=== PATIENT | female | born 1950 | race American Indian/Alaskan Native ===

== ENCOUNTER 2020-01-22 06:53 | Day surgery (SDC) | payer MEDICARE ==
--- NOTE | 2020-01-20 12:52 | Anesthesia Consultation ---
Anesthesia Consult and Med Hx Date of service: 01/20/20 - Airway Anesthetic Teeth Evaluation: Dentures (upper), Partials (lower) ROM Head & Neck: Adequate Mental/Hyoid Distance: Adequate Mallampati Class: Class III Intubation Access Assessment: Possibly Difficult (small mouth opening) - Pulmonary Exam CTA: Yes - Cardiac Exam Cardiac Exam: RRR - Pre-Operative Health Status ASA Pre-Surgery Classification: ASA3 Proposed Anesthetic Plan: General - Pulmonary Hx Smoking: No Hx Respiratory Symptoms: No - Cardiovascular System Hx Hypertension: Yes Hx Heart Attack/AMI: No Hx Percutaneous Transluminal Coronary Angioplasty (PTCA): No Hx Cardia Arrhythmia: Yes (hx palpitations; Holter monitor showed occas PVCs, PACs) Hx Pacemaker: No Hx Internal Defibrillator: No - Central Nervous System Hx Neuromuscular Disorder: No (peripheral neuropathy) CVA: No Hx Back Pain: Yes - Endocrine Hx Renal Disease: Yes (CKD 3) Hx Liver Disease: No Hx Non-Insulin Dependent Diabetes: Yes Hx Thyroid Disease: Yes (hx goiter s/p thyroidectomy) - Hematic Hx Anemia: Yes - Other Systems Hx Obesity: Yes (BMI 39) - Additional Comments Anesthesia Medical History Comments: No hx anesthetic complications. Takes prednisone 5mg qDay for >1yr 2/2 gout. Advised to take this morning of surgery. PCP clearance on chart. Prior EKG requested.
[~2020-01-22 06:53] MED LIST: ACETAMINOPHEN 500 MG TAB PO SCH; BUPIVACAINE/PF (0.25%) 2.5 MG/ML 30 ML VIAL INFILTRATI ONE; GABAPENTIN 300 MG CAP PO NR; LACTATED RINGERS 1,000 ML IV SCH; LIDOCAINE (1%) 10 MG/1 ML VIAL 20 ML MDV INFILTRATI ONE; MAGNESIUM OXIDE 400 MG TAB PO SCH; WATER FOR IRRIG STERILE 1,500 ML BOTTLE IR ONE; ceFAZolin/Water 2 GM/20 ML 2 GM/20 ML SYRINGE IV NR
[2020-01-22] MEDS ORDERED: LIDOCAINE (1%) 10 MG/1 ML VIAL 20 ML MDV ONE ×2 (07:42→10:04)
[2020-01-22] MEDS ORDERED: HYDROmorphone 1 MG/1 ML INJ IV PRN (08:45)
--- NOTE | 2020-01-22 08:46 | Anesthesia Day of Surgery ---
Anesthesia Day of Surgery - Day of Surgery Patient Examined: Yes Patient H&P Reviewed: Yes Patient is NPO: Yes
[2020-01-22] MEDS ORDERED: propofoL 200 MG/20 ML VIAL IV ONE (09:52)
[2020-01-22] MEDS ORDERED: LIDOCAINE MPF (2%) 20 MG/1 ML VIAL 5 ML ONE (09:52)
[2020-01-22] MEDS ORDERED: HYDROmorphone 1 MG/1 ML INJ ONE (09:52)
[2020-01-22] MEDS ORDERED: BUPIVACAINE/PF (0.25%) 2.5 MG/ML 30 ML VIAL INFILTRATI ONE ×2 (10:05→11:38)
[2020-01-22] MEDS ORDERED: PHENYLEPHRINE/NS 1,000 MCG/10 ML SYRINGE (OR USE) IV ONE (10:37)
[2020-01-22] MEDS ORDERED: ONDANSETRON 4 MG/2 ML INJ ONE ×2 (10:38→12:36)
[2020-01-22] MEDS ORDERED: ePHEDrine SULFATE 50 MG/1 ML INJ ONE (11:17)
[2020-01-22] MEDS ORDERED: WATER FOR IRRIG STERILE 1,500 ML BOTTLE IR ONE (11:35)
[2020-01-22] MEDS ORDERED: LIDOCAINE (1%) 10 MG/1 ML VIAL 20 ML MDV INFILTRATI ONE (11:38)
--- NOTE | 2020-01-22 11:46 | Operative Report ---
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 Recommendations are to proceed with right breast excisional biopsy to rule out malignancy. She wished to proceed with the above procedure. Procedure in detail: The patient was taken to radiology for wire placement for localization of known area of concern. Patient was then taken to the operating room. Gen. anesthesia was administered. Right breast and axilla were prepped and draped in the normal sterile operative fashion. The wire was identified. Timeout was performed. Attention was then taken towards the right breast. Lateral breast incision was made around the 9:00 position with a 15 blade knife and dissection taken down to subcutaneous tissues. First began raising of the anterior flap with removal of the wire from the skin with dissection taken down posteriorly past the wire, followed by raising of the inferior flap, medial flap, lateral and superior flap with all flaps taken down posteriorly past the wire. The breast area of concern was appropriately removed posteriorly with the aid of the Bovie cautery. The wire was not encountered. Specimen was marked and then sent to pathology and radiology; radiograph specimen with wire and clip present. Breast cavity was irrigated and hemostasis was obtained. The posterior deep breast tissues were approximated and closed using interrupted 3-0 Vicryl. The subcutaneous tissues were approximated and closed using interrupted 3-0 Vicryl followed by closing of the skin with a running 4-0 Monocryl and skin affix. The patient tolerated surgery very well and she was awaken from anesthesia without any complication and transported to PACU in good condition.
--- NOTE | 2020-01-22 11:49 | Short Stay Summary ---
Short Stay Documentation Date of service: 01/22/20 - History H&P: obtained from office - Allergies and Medications Current Medications: Allergies No Known Allergies Allergy (Verified 01/13/20 12:45) Home Medications Medication Instructions Recorded Confirmed Last Taken Type Metformin HCl 500 mg PO BID 03/26/13 01/13/20 01/21/20 History Cholecalciferol (Vitamin D3) 3,000 unit PO DAILY 01/13/20 01/13/20 01/21/20 History [Vitamin D3 3,000 unit] Doxazosin [Cardura] 4 mg PO QDAY 01/13/20 01/13/20 01/21/20 History Ferrous Sulfate [Feosol] 325 mg PO QDAY 01/13/20 01/13/20 01/21/20 History Furosemide [Lasix TAB] 40 mg PO QDAY 01/13/20 01/13/20 01/21/20 History Multivit-Min36/Iron/Folic Acid 1 each PO DAILY 01/13/20 01/13/20 01/21/20 History [Geritol Complete Tablet] Prednisone [predniSONE (Janell) ER 5 mg PO QDAY 01/13/20 01/13/20 01/22/20 05:30 History TAB] Simvastatin 10 mg PO QHS 01/13/20 01/13/20 01/21/20 History Valsartan/Hydrochlorothiazide 1 each PO DAILY 01/13/20 01/13/20 01/21/20 History [Valsartan-Hctz 160-25 mg Tab] Vitamin E Mixed [Vitamin E] 1,000 unit PO DAILY 01/13/20 01/13/20 01/21/20 History allopurinoL [Zyloprim] 300 mg PO QDAY 01/13/20 01/13/20 01/21/20 History amLODIPine [Norvasc] 10 mg PO DAILY 01/13/20 01/13/20 01/22/20 05:30 History carvediloL [Coreg] 25 mg PO BID 01/22/20 01/22/20 01/22/20 05:30 History oxyCODONE /ACETAMINOPHEN [Percocet 1 tab PO Q6HR PRN #15 tablet 01/22/20 Unknown Rx 5/325] Active Medications Acetaminophen (Tylenol) 1,000 mg PO PREOP DEVIKA Stop: 01/22/20 23:59 Last Admin: 01/22/20 08:36 Dose: 1,000 mg Documented by: Gabapentin (Gabapentin) 300 mg PO PREOP NR Stop: 01/22/20 23:59 Last Admin: 01/22/20 08:36 Dose: 300 mg Documented by: Hydromorphone HCl (Dilaudid) 0.5 mg IV Q10MIN PRN PRN Reason: Pain , Severe (7-10) Stop: 01/22/20 23:00 Cefazolin Sodium (Ancef/Sterile Water 2 Gm/20 Ml) 2 gm in 20 mls @ 80 mls/hr IV PREOP NR; Protocol Stop: 01/22/20 23:59 Lactated Ringer's (Lactated Ringers) 1,000 mls @ 100 mls/hr IV DIRECT DEVIKA Stop: 01/22/20 23:59 Last Admin: 01/22/20 09:10 Dose: 100 mls/hr Documented by: Magnesium Oxide (Mag-Ox) 400 mg PO PREOP DEVIKA Stop: 01/22/20 23:59 Last Admin: 01/22/20 08:36 Dose: 400 mg Documented by: - Brief post op/procedure progress note Date of procedure: 01/22/20 Pre-op diagnosis: Right breast ADH of central breast Post-op diagnosis: same Procedure: Right needle localization excisional biopsy Anesthesia: GETA Findings: wire and clip present Surgeon: HARIS MAHONEY Estimated blood loss: minimal Pathology: list Specimen disposition: to lab Condition: stable - Disposition Condition at discharge: Good Disposition: DC-01 TO HOME OR SELFCARE Short Stay Discharge Plan Activity: other (no heavy lifting) Diet: regular Wound: keep clean and dry (wear breast binder; may shower in 48 hours; no baths, pools or lakes; do not rub or scrub incision) Follow up with: HARIS MAHONEY MD [Staff Physician] - 7 Days Prescriptions: oxyCODONE /ACETAMINOPHEN [Percocet 5/325] 1 tab PO Q6HR PRN #15 tablet PRN Reason: Pain
--- NOTE | 2020-01-22 12:09 | Mammography Report ---
Examination: Mammographic guided right breast needle localization CLINICAL INFORMATION: Patient with a right breast nodule requiring needle localization. Comparison: Diagnostic imaging from 12/23/2019. PROCEDURE: The risks, benefits and indications to the procedure were discussed with the patient. She agreed to p roceed with both verbal and written consent. A timeout procedure was performed using two patient iden tifiers. The breast was prepped with Chlorhexidine 1% in the usual sterile fashion. Approximately 10 cc of Lid ocaine 1% was used for local anesthesia. Under direct digital mammographic guidance, a localization w brenna was placed in satisfactory position with distal tip traversing the targeted lesion. Post-biopsy m ammogram confirms satisfactory positioning of the localization wire. The wire was secured to the skin with a sterile dressing. The patient tolerated procedure without difficulty. No complications were encountered. IMPRESSION: 1. Satisfactory wire localization of the right breast as above. Signer Name: John Loera MD Signed: 01/22/2020 12:05 PM Workstation Name: [id number]
--- NOTE | 2020-01-22 12:14 | Mammography Report ---
Right breast surgical specimen INDICATION: Patient for right breast needle localization earlier today TECHNIQUE: A single image of the surgical specimen was provided. IMPRESSION: The entire wire was submitted and the right breast nodule with internal clip is completel y included on the provided specimen. Signer Name: John Loera MD Signed: 01/22/2020 12:09 PM Workstation Name: [id number]
[2020-01-22 12:18] VITALS: BP 138/75
[2020-01-22] MEDS ORDERED: ONDANSETRON 4 MG/2 ML INJ IV ONE (12:37)
--- NOTE | 2020-01-22 15:33 | Post Anesthesia Evaluation ---
- Post Anesthesia Evaluation Patient Participated: Yes Airway Patent: Yes Stable Respiratory Function: Yes Nausea/Vomiting: No Temp > 96.8F: Yes Pain Manageable: Yes Adequeate Hydration: Yes Anesthesia Complications: No
== END 2020-01-22 06:54 | disposition home or self-care (01) ==
LOC: OR 06:53
PROVIDERS: ATTEND Surgery
DX: N64.89 Other specified disorders of breast (principal); Z20.828 Contact with and (suspected) exposure to other viral communicable diseases; D24.1 Benign neoplasm of right breast; H40.9 Unspecified glaucoma; G62.9 Polyneuropathy, unspecified; I42.9 Cardiomyopathy, unspecified; E78.00 Pure hypercholesterolemia, unspecified; I12.9 Hypertensive chronic kidney disease with stage 1 through stage 4 chronic kidney disease, or unspecified chronic kidney disease; N18.3 Chronic kidney disease, stage 3 (moderate); E11.22 Type 2 diabetes mellitus with diabetic chronic kidney disease; E03.9 Hypothyroidism, unspecified; E11.42 Type 2 diabetes mellitus with diabetic polyneuropathy; E11.39 Type 2 diabetes mellitus with other diabetic ophthalmic complication; D64.9 Anemia, unspecified; Z90.49 Acquired absence of other specified parts of digestive tract; Z79.899 Other long term (current) drug therapy; Z79.84 Long term (current) use of oral hypoglycemic drugs; Z98.890 Other specified postprocedural states; Z96.652 Presence of left artificial knee joint
CPT/HCPCS: 19125; 19281; 76098; 82962; 88307; J0690; J1170; J2370; J2405; J2704; J7120; U0003

== ENCOUNTER 2020-08-13 12:41 | Outpatient (CLI) | payer MEDICARE ==
--- NOTE | 2020-08-13 14:41 | Mammography Report ---
DIGITAL DIAGNOSTIC MAMMOGRAM WITH CAD , 08/13/2020 CLINICAL INFORMATION / INDICATION: History of right breast surgery TECHNIQUE: Digital bilateral mammographic imaging was performed. This examination was interpreted with the benefit of Computer-aided Detection analysis. COMPARISON: Prior mammogram 11/11/2019, 10/29/2018 and diagnostic mammogram 11/23/2019 FINDINGS: Breast Density: There are scattered areas of fibroglandular density. No dominant mass, suspicious calcifications or architectural distortion in either breast. There has been interval excisional biopsy in the right breast since the prior exam. There are 2 biops y clips present in the right breast unchanged from older exams. The biopsy clip in question that was related to ADH/fibroadenoma has been removed during recent right breast surgery. Biopsy clip in the retroareolar left breast is again noted. There are multiple clusters of calcificat ions present bilaterally unchanged. IMPRESSION: No mammographic evidence of malignancy. Follow up recommendation: Routine yearly BI-RADS Category 2: Benign. A "normal" or negative report should not discourage follow up or biopsy of a clinically significant f inding. A written summary of these findings will be mailed to the patient. The patient will be entered into a mammography reporting system which will generate a reminder letter for the patient's next appointmen t at the appropriate interval. According to the [employer], yearly mammograms are recommended starting at age 40 and continuing as long as a woman is in good health. Breast MRI is recommended for women with an roman roximately 20-25% or greater lifetime risk of breast cancer, including women with a strong family his tory of breast or ovarian cancer and women who have been treated for Hodgkin's disease. Signer Name: Sonya Daniels MD Signed: 08/13/2020 2:36 PM Workstation Name: [id number]
== END 2020-08-13 12:42 | disposition home or self-care (01) ==
LOC: SPVWC 12:41
PROVIDERS: ATTEND Surgery
DX: R92.8 Other abnormal and inconclusive findings on diagnostic imaging of breast (principal)
CPT/HCPCS: 77066

== ENCOUNTER 2020-11-12 13:15 | Outpatient (CLI) | payer MEDICARE ==
--- NOTE | 2020-11-13 09:09 | Mammography Report ---
DIGITAL SCREENING MAMMOGRAM WITH CAD, 11/12/2020 CLINICAL INFORMATION / INDICATION: Routine screening mammography. TECHNIQUE: Digital bilateral 2D mammography was obtained in the craniocaudal and mediolateral obliqu e projections. This examination was interpreted with the benefit of Computer-Aided Detection analysis . COMPARISON: Prior mammograms 08/13/2020 and 11/11/2019 FINDINGS: Breast Density: There are scattered areas of fibroglandular density. No dominant mass, suspicious calcifications, or architectural distortion in either breast. There is stable benign postsurgical change seen in the right breast, stable biopsy clips seen in both breasts, and stable benign-appearing calcifications seen in both breasts. There has been no signific ant change compared with the prior examination. IMPRESSION: No mammographic evidence of malignancy. Follow up recommendation: Routine yearly BI-RADS Category 2: Benign. A "normal" or negative report should not discourage follow up or biopsy of a clinically significant f inding. A written summary of these findings will be mailed to the patient. The patient will be entered into a mammography reporting system which will generate a reminder letter for the patient's next appointmen t at the appropriate interval. The [employer] recommends yearly mammograms starting at age 40 and continuing as l chavo as a woman is in good health. Breast MRI is recommended for women with an approximate 20-25% or greater lifetime risk of breast cancer, including women with a strong family history of breast or ova marcial cancer or who have been treated for Hodgkin's disease. Signer Name: Felisha Morales MD Signed: 11/13/2020 9:04 AM Workstation Name: [id number]
== END 2020-11-12 13:16 | disposition home or self-care (01) ==
LOC: SPVWC 13:15
PROVIDERS: ATTEND Surgery
DX: Z12.31 Encounter for screening mammogram for malignant neoplasm of breast (principal); N64.89 Other specified disorders of breast
CPT/HCPCS: 77067

== ENCOUNTER 2021-06-16 08:04 | Outpatient (CLI) | payer MEDICARE ==
--- NOTE | 2021-06-16 17:44 | Mammography Report ---
DIGITAL DIAGNOSTIC MAMMOGRAM WITH CAD WITH TOMOSYNTHESIS, 06/16/2021 CLINICAL INFORMATION / INDICATION: Patient has history of prior bilateral benign breast biopsies. Pat ient has no current complaints. CALCIFICATIONS OF BREAST R92.1, R92.0/ MAMMARY DYSPLASIAS N60.81 TECHNIQUE: Digital bilateral mammographic imaging was performed. This examination was interpreted with the benefit of Computer-aided Detection analysis. COMPARISON: Prior mammogram 11/12/2020, 08/13/2020, and 11/11/2019 FINDINGS: Breast Density: There are scattered areas of fibroglandular density. No dominant mass, suspicious calcifications or architectural distortion in the left breast. Redemonstration of postlumpectomy change in the upper outer quadrant of the right breast, middle dept h. There is a possible area of increasing nodularity along the margin of the lumpectomy site measurin g up to approximately 10 mm, best seen on CC view. It is uncertain if this is new or is just seen to better advantage on the current study with tomosynthesis. There are stable benign-appearing calcific ations with scattered distribution seen in both breasts, and stable biopsy clips in both breasts. IMPRESSION: 1. There is possible increasing density seen at the lumpectomy site in the right breast. Recommend fu rther evaluation with spot compression views and targeted ultrasound if needed. Follow up recommendation: Special View: Spot BI-RADS Category 0: INCOMPLETE. Needs additional imaging evaluation and/or prior mammograms for jessy allen. A "normal" or negative report should not discourage follow up or biopsy of a clinically significant f inding. A written summary of these findings will be mailed to the patient. The patient will be entered into a mammography reporting system which will generate a reminder letter for the patient's next appointmen t at the appropriate interval. According to the [employer], yearly mammograms are recommended starting at age 40 and continuing as long as a woman is in good health. Breast MRI is recommended for women with an roman roximately 20-25% or greater lifetime risk of breast cancer, including women with a strong family his tory of breast or ovarian cancer and women who have been treated for Hodgkin's disease. Signer Name: Felisha Morales MD Signed: 06/16/2021 5:40 PM Workstation Name: [email or web address]
== END 2021-06-16 08:05 | disposition home or self-care (01) ==
LOC: SPVWC 08:04
PROVIDERS: ATTEND Surgery
DX: R92.1 Mammographic calcification found on diagnostic imaging of breast (principal); N60.81 Other benign mammary dysplasias of right breast; Z90.12 Acquired absence of left breast and nipple
CPT/HCPCS: 77066; G0279

== ENCOUNTER 2021-08-11 18:14 | Inpatient (IN) | payer MEDICARE ==
[2021-08-11] MEDS ORDERED: SODIUM CHLORIDE 0.9% 1000 ML 1,000 ML ONE (19:18)
[2021-08-11] MEDS ORDERED: SODIUM CHLORIDE 0.9% 1000 ML 1,000 ML IV ONE (19:26)
[2021-08-11] MEDS ORDERED: SODIUM CHLORIDE 0.9% 1000 ML IV SOLN IV ONE (19:33)
[2021-08-11] MEDS ORDERED: methylPREDNISolone Sod Succinate 125 MG/2 ML INJ IV ONE (19:34)
[2021-08-11 20:26] LABS: Hematocrit 35.5 % (30.3-42.9); Hemoglobin 11.1 gm/dl (10.1-14.3); Mean Corpuscular HGB Conc 31 % (30-34); Mean Corpuscular Volume 89 fl (79-97); Platelet Count 262 K/mm3 (140-440); Red Blood Count 3.99 M/mm3 (3.65-5.03); Red Cell Distribution Width 14.8 % (13.2-15.2)
--- NOTE | 2021-08-11 20:36 | XRay Report ---
CHEST 1 VIEW INDICATION: hypotension. COMPARISON: None FINDINGS: SUPPORT DEVICES: None. HEART: Mild cardiomegaly. LUNGS/PLEURA: Mild edema and patchy right basilar airspace disease/edema. No significant effusion. ADDITIONAL FINDINGS: None. IMPRESSION: 1. Lung findings as above. Signer Name: John Loera MD Signed: 08/11/2021 8:32 PM Workstation Name: [id number]
[2021-08-11 20:54] LABS: Alanine Aminotransferase 15 units/L (7-56); Albumin 3.3 g/dL (3.9-5); Blood Urea Nitrogen 59 mg/dL (7-17); Calcium 8.1 mg/dL (8.4-10.2); Hemolysis Index 11
[2021-08-11 21:01] LABS: Free T4 (Free Thyroxine) 1.08 ng/dL (0.76-1.46)
[2021-08-11] MEDS ORDERED: CEFEPIME/NS 1 GM/100 ML 1 GM/100 ML BAG IV ONE (21:15)
[2021-08-11] MEDS ORDERED: VANCOMYCIN 2,000 MG in SODIUM CHLORIDE 0.9% 500 ML 500 ML IV ONE (21:16)
[2021-08-11 21:17] LABS: BUN/Creatinine Ratio 16
--- NOTE | 2021-08-11 21:55 | Emergency Department Report ---
- General Chief complaint: Weakness Stated complaint: HIVES/WEAKNESS Time Seen by Provider: 08/11/21 19:18 Source: patient, EMS, old records reviewed Mode of arrival: Stretcher Limitations: No Limitations - History of Present Illness Initial comments: 70-year-old female with a past medical history of hypertension, gout, CKD, diabetes, and noncancerous breast mass presents to the hospital complaining of generalized weakness since this morning. Patient reports she has been lethargic and too weak to walk with decreased appetite today. For the last 1 week she has had generalized pruritic erythematous rash diagnosed as hives by her PMD. She received 1 IM dose of steroids and was sent home with a steroid cream. Patient denies new exposures and denies starting a new medication. Patient denies infectious symptoms such as cough, fever, nausea, vomiting, diarrhea, or dysuria . She denies a known history of heart disease or CHF Severity scale (0 -10): 0 - Related Data Home Medications Medication Instructions Recorded Confirmed Last Taken Metformin HCl 500 mg PO BID 03/26/13 01/13/20 01/21/20 Cholecalciferol (Vitamin D3) 3,000 unit PO DAILY 01/13/20 01/13/20 01/21/20 [Vitamin D3 3,000 unit] Doxazosin [Cardura] 4 mg PO QDAY 01/13/20 01/13/20 01/21/20 Ferrous Sulfate [Feosol] 325 mg PO QDAY 01/13/20 01/13/20 01/21/20 Furosemide [Lasix TAB] 40 mg PO QDAY 01/13/20 01/13/20 01/21/20 Multivit-Min36/Iron/Folic Acid 1 each PO DAILY 01/13/20 01/13/20 01/21/20 [Geritol Complete Tablet] Prednisone [predniSONE (Ajnell) ER 5 mg PO QDAY 01/13/20 01/13/20 01/22/20 05:30 TAB] Simvastatin 10 mg PO QHS 01/13/20 01/13/20 01/21/20 Valsartan/Hydrochlorothiazide 1 each PO DAILY 01/13/20 01/13/20 01/21/20 [Valsartan-Hctz 160-25 mg Tab] Vitamin E Mixed [Vitamin E] 1,000 unit PO DAILY 01/13/20 01/13/20 01/21/20 allopurinoL [Zyloprim] 300 mg PO QDAY 01/13/20 01/13/20 01/21/20 amLODIPine [Norvasc] 10 mg PO DAILY 01/13/20 01/13/20 01/22/20 05:30 carvediloL [Coreg] 25 mg PO BID 01/22/20 01/22/20 01/22/20 05:30 Previous Rx's Medication Instructions Recorded Last Taken Type oxyCODONE /ACETAMINOPHEN [Percocet 1 tab PO Q6HR PRN #15 tablet 01/22/20 Unknown Rx 5/325] Allergies Allergy/AdvReac Type Severity Reaction Status Date / Time No Known Allergies Allergy Verified 08/11/21 18:17 ED Review of Systems ROS: Stated complaint: HIVES/WEAKNESS Other details as noted in HPI Comment: All other systems reviewed and negative ED Past Medical Hx - Past Medical History Hx Hypertension: Yes Hx Heart Attack/AMI: No Hx Diabetes: Yes (OVER 20 YRS) Hx Liver Disease: No Hx Renal Disease: Yes (CKD 3) Hx Arthritis: Yes Hx HIV: No - Surgical History Hx Pacemaker: No Hx Internal Defibrillator: No Hx Cholecystectomy: Yes Hx Breast Surgery: Yes (3 RIGHT BX; 1 LEFT BX) Additional Surgical History: hysterectomy, thyriodectomy, bilateral TKR - Social History Smoking Status: Never Smoker - Medications Home Medications: Home Medications Medication Instructions Recorded Confirmed Last Taken Type Metformin HCl 500 mg PO BID 03/26/13 01/13/20 01/21/20 History Cholecalciferol (Vitamin D3) 3,000 unit PO DAILY 01/13/20 01/13/20 01/21/20 History [Vitamin D3 3,000 unit] Doxazosin [Cardura] 4 mg PO QDAY 01/13/20 01/13/20 01/21/20 History Ferrous Sulfate [Feosol] 325 mg PO QDAY 01/13/20 01/13/20 01/21/20 History Furosemide [Lasix TAB] 40 mg PO QDAY 01/13/20 01/13/20 01/21/20 History Multivit-Min36/Iron/Folic Acid 1 each PO DAILY 01/13/20 01/13/20 01/21/20 History [Geritol Complete Tablet] Prednisone [predniSONE (Janell) ER 5 mg PO QDAY 01/13/20 01/13/20 01/22/20 05:30 History TAB] Simvastatin 10 mg PO QHS 01/13/20 01/13/20 01/21/20 History Valsartan/Hydrochlorothiazide 1 each PO DAILY 01/13/20 01/13/20 01/21/20 History [Valsartan-Hctz 160-25 mg Tab] Vitamin E Mixed [Vitamin E] 1,000 unit PO DAILY 01/13/20 01/13/20 01/21/20 History allopurinoL [Zyloprim] 300 mg PO QDAY 01/13/20 01/13/20 01/21/20 History amLODIPine [Norvasc] 10 mg PO DAILY 01/13/20 01/13/20 01/22/20 05:30 History carvediloL [Coreg] 25 mg PO BID 01/22/20 01/22/20 01/22/20 05:30 History oxyCODONE /ACETAMINOPHEN [Percocet 1 tab PO Q6HR PRN #15 tablet 01/22/20 Unknown Rx 5/325] ED Physical Exam - General Limitations: No Limitations - Other Other exam information: General: No acute distress Head: Atraumatic Eyes: normal appearance ENT: Moist mucous membranes Neck: Normal appearance, no midline tenderness Chest: Clear to auscultation bilaterally CV: Regular rate and rhythm Abdomen: Soft, normal bowel sounds, nontender, nondistended, no rebound or guard ing Back: Normal inspection Extremity: Normal inspection, full range of motion Neuro: Alert O x 3, no facial asymmetry, speech clear, no gross motor sensory deficit Psych: Appropriate behavior Skin: No rash ED Course Vital Signs 08/11/21 08/11/21 08/11/21 18:15 19:23 20:07 Temperature 99.7 F H Pulse Rate 88 72 85 Respiratory 18 20 20 Rate Blood Pressure 148/102 75/34 125/59 [Left] O2 Sat by Pulse 100 95 100 Oximetry ED Medical Decision Making - Lab Data Result diagrams: 08/11/21 20:07 08/11/21 20:07 Lab Results 08/11/21 08/11/21 08/11/21 Range/Units 20:07 20:07 20:07 WBC 26.0 H (4.5-11.0) K/mm3 RBC 3.99 (3.65-5.03) M/mm3 Hgb 11.1 (10.1-14.3) gm/dl Hct 35.5 (30.3-42.9) % MCV 89 (79-97) fl MCH 28 (28-32) pg MCHC 31 (30-34) % RDW 14.8 (13.2-15.2) % Plt Count 262 (140-440) K/mm3 Sodium 133 L (137-145) mmol/L Potassium 5.0 (3.6-5.0) mmol/L Chloride 96.2 L (98-107) mmol/L Carbon Dioxide 20 L (22-30) mmol/L Anion Gap 22 mmol/L BUN 59 H (7-17) mg/dL Creatinine 3.8 H (0.6-1.2) mg/dL Estimated GFR 14 ml/min BUN/Creatinine Ratio 16 % Glucose 185 H (65-100) mg/dL Lactic Acid 2.70 H* (0.7-2.0) mmol/L Calcium 8.1 L (8.4-10.2) mg/dL Total Bilirubin 0.60 (0.1-1.2) mg/dL AST 22 (5-40) units/L ALT 15 (7-56) units/L Alkaline Phosphatase 74 (35-129) units/L Troponin T < 0.010 (0.00-0.029) ng/mL Total Protein 5.3 L (6.3-8.2) g/dL Albumin 3.3 L (3.9-5) g/dL Albumin/Globulin Ratio 1.7 % TSH (0.270-4.200) mlU/mL Free T4 (0.76-1.46) ng/dL 08/11/21 Range/Units 20:07 WBC (4.5-11.0) K/mm3 RBC (3.65-5.03) M/mm3 Hgb (10.1-14.3) gm/dl Hct (30.3-42.9) % MCV (79-97) fl MCH (28-32) pg MCHC (30-34) % RDW (13.2-15.2) % Plt Count (140-440) K/mm3 Sodium (137-145) mmol/L Potassium (3.6-5.0) mmol/L Chloride (98-107) mmol/L Carbon Dioxide (22-30) mmol/L Anion Gap mmol/L BUN (7-17) mg/dL Creatinine (0.6-1.2) mg/dL Estimated GFR ml/min BUN/Creatinine Ratio % Glucose (65-100) mg/dL Lactic Acid (0.7-2.0) mmol/L Calcium (8.4-10.2) mg/dL Total Bilirubin (0.1-1.2) mg/dL AST (5-40) units/L ALT (7-56) units/L Alkaline Phosphatase (35-129) units/L Troponin T (0.00-0.029) ng/mL Total Protein (6.3-8.2) g/dL Albumin (3.9-5) g/dL Albumin/Globulin Ratio % TSH 3.020 (0.270-4.200) mlU/mL Free T4 1.08 (0.76-1.46) ng/dL - EKG Data -: EKG Interpreted by Nd EKG shows normal: sinus rhythm (82), ST-T waves (no stemi) Rate: normal (82) - Radiology Data Radiology results: report reviewed CHEST 1 VIEW INDICATION: hypotension. COMPARISON: None FINDINGS: SUPPORT DEVICES: None. HEART: Mild cardiomegaly. LUNGS/PLEURA: Mild edema and patchy right basilar airspace disease/edema. No si gnificant effusion. ADDITIONAL FINDINGS: None. IMPRESSION: 1. Lung findings as above. - Medical Decision Making 70-year-old female presents to the hospital with generalized weakness x1 day and pruritic maculopapular rash x1 week treated with IM steroid x1 and topical steroids. Patient developed significant hypotension in the ED and subsequent was treated as per sepsis protocol. Patient received 30 mill per KG of IV fluids with improvement in blood pressure. Significant leukocytosis and mild lactic acid elevation noted. Chest x-ray findings reviewed with differential of edema versus airspace disease. Patient empirically treated with broad-spectrum antibiotics cefepime and vancomycin until source of infection can be identified. SIRS also in the differential. Patient has known renal sufficiency with unknown baseline at this time. Consults with infectious disease and nephrology ordered. Patient does report feeling better with IV hydration and hypotension resolution. Case discussed with hospitalist for admission. Critical Care Time: No Critical care attestation.: If time is entered above; I have spent that time in minutes in the direct care of this critically ill patient, excluding procedure time. ED Disposition Clinical Impression: Sepsis, Pulmonary infiltrate, Renal insufficiency, Maculopapular rash, generalized Disposition: 09 ADMITTED INPATIENT Is pt being admited?: Yes Condition: Stable Time of Disposition: 22:07
[2021-08-11] MEDS ORDERED: MORPHINE 4 MG/1 ML INJ IV PRN (23:37)
[2021-08-11] MEDS ORDERED: ONDANSETRON 4 MG/2 ML INJ IV PRN (23:37)
[2021-08-11] MEDS ORDERED: MORPHINE 2 MG/1 ML INJ IV PRN (23:37)
[2021-08-11] MEDS ORDERED: DEXTROSE 50% IN WATER (25GM) 50 ML SYRINGE IV PRN (23:37)
[2021-08-11] MEDS ORDERED: MAGNESIUM HYDROXIDE (MOM) ORAL LIQD UDC PO PRN (23:37)
[2021-08-11] MEDS ORDERED: VANCOMYCIN PHARMACY TO DOSE IV SCH (23:45)
[2021-08-11] MEDS ORDERED: CEFEPIME/NS 2 GM/100 ML 2 GM/100 ML BAG IV SCH (23:45)
[2021-08-11] MEDS ORDERED: DEXTROSE 10% *Hypoglycemia IV PRN (23:51)
--- NOTE | 2021-08-12 00:02 | History and Physical Report ---
History of Present Illness Date of examination: 08/11/21 Date of admission: 08/11/2021 Chief complaint: Generalized weakness History of present illness: 30-year-old female with significant past medical history of gout, chronic kidney disease, diabetes mellitus and noncancerous breast mass presents to the emergency room today complaining of decreased appetite and generalized weakness. Symptoms were said to have started earlier this morning. She denies any fever or chills, no chest pain or shortness of breath, no headache or dizziness and no diaphoresis. Patient denies any nausea vomiting and denies any diarrhea. No abdominal pain, no hematuria or dysuria. She also indicates that she has been having generalized rash she is on pruritus over the past 1 week. She had followed up with a primary care physician who had given steroids injection steroid cream. She has been using her medication without any significant improvement. Patient denies using any new medications. Denies new exposures. She denies any sick contacts and no recent travel. Denies any contact with anyone with COVID-19. During the course of stay in the emergency room today patient became hypotensive with systolic blood pressure dropping to the 70s. Patient subsequently received IV bolus of normal saline with significant improvement. Work-up in the emergency room today, labs reveals leukocytosis of 26, BUN of 15 and creatinine of 3.8. Chest x-ray shows mild edema and patchy right basilar airspace disease/edema. Past History Past Medical History: diabetes, hypertension, renal failure, other (Gout, noncancerous breast mass) Past Surgical History: Other (Yes (3 RIGHT BX; 1 LEFT BX), hysterectomy, thyriodectomy, bilateral TKR) Social history: no significant social history Family history: no significant family history Medications and Allergies Allergies Allergy/AdvReac Type Severity Reaction Status Date / Time No Known Allergies Allergy Verified 08/11/21 18:17 Home Medications Medication Instructions Recorded Confirmed Last Taken Type Metformin HCl 500 mg PO BID 03/26/13 01/13/20 01/21/20 History Cholecalciferol (Vitamin D3) 3,000 unit PO DAILY 01/13/20 01/13/20 01/21/20 History [Vitamin D3 3,000 unit] Doxazosin [Cardura] 4 mg PO QDAY 01/13/20 01/13/20 01/21/20 History Ferrous Sulfate [Feosol] 325 mg PO QDAY 01/13/20 01/13/20 01/21/20 History Furosemide [Lasix TAB] 40 mg PO QDAY 01/13/20 01/13/20 01/21/20 History Multivit-Min36/Iron/Folic Acid 1 each PO DAILY 01/13/20 01/13/20 01/21/20 History [Geritol Complete Tablet] Prednisone [predniSONE (Janell) ER 5 mg PO QDAY 01/13/20 01/13/20 01/22/20 05:30 History TAB] Simvastatin 10 mg PO QHS 01/13/20 01/13/20 01/21/20 History Valsartan/Hydrochlorothiazide 1 each PO DAILY 01/13/20 01/13/20 01/21/20 History [Valsartan-Hctz 160-25 mg Tab] Vitamin E Mixed [Vitamin E] 1,000 unit PO DAILY 01/13/20 01/13/20 01/21/20 History allopurinoL [Zyloprim] 300 mg PO QDAY 01/13/20 01/13/20 01/21/20 History amLODIPine [Norvasc] 10 mg PO DAILY 01/13/20 01/13/20 01/22/20 05:30 History carvediloL [Coreg] 25 mg PO BID 01/22/20 01/22/20 01/22/20 05:30 History oxyCODONE /ACETAMINOPHEN [Percocet 1 tab PO Q6HR PRN #15 tablet 01/22/20 Unknown Rx 5/325] Active Meds: Active Medications Acetaminophen (Acetaminophen 325 Mg Tab) 650 mg PO Q4H PRN PRN Reason: Pain MILD(1-3)/Fever >100.5/BLISS Dextrose (Dextrose 10% *Hypoglycemia) 0 ml IV PRN PRN PRN Reason: Hypoglycemia Heparin Sodium (Porcine) (Heparin 5,000 Unit/1 Ml Vial) 5,000 unit SUB-Q Q8HR DEVIKA Sodium Chloride (Nacl 0.9% 1000 Ml) 1,000 mls @ 125 mls/hr IV DIRECT DEVIKA Cefepime HCl (Cefepime/Ns 2 Gm/100 Ml) 2 gm in 100 mls @ 200 mls/hr IV Q24H DEVIKA; Protocol Insulin Human Lispro (Insulin Lispro 100 Unit/Ml) 0 unit SUB-Q ACHS DEVIKA; Protocol Magnesium Hydroxide (Magnesium Hydroxide (Mom) Oral Liqd Udc) 30 ml PO Q4H PRN PRN Reason: Constipation Morphine Sulfate (Morphine 2 Mg/1 Ml Inj) 2 mg IV Q4H PRN PRN Reason: Pain, Moderate (4-6) Morphine Sulfate (Morphine 4 Mg/1 Ml Inj) 4 mg IV Q4H PRN PRN Reason: Pain , Severe (7-10) Ondansetron HCl (Ondansetron 4 Mg/2 Ml Inj) 4 mg IV Q8H PRN PRN Reason: Nausea And Vomiting Sodium Chloride (Sodium Chloride 0.9% 10 Ml Flush Syringe) 10 ml IV BID DEVIKA Sodium Chloride (Sodium Chloride 0.9% 10 Ml Flush Syringe) 10 ml IV PRN PRN PRN Reason: LINE FLUSH Review of Systems Constitutional: weakness, no fever, no chills Ears, nose, mouth and throat: no nasal congestion, no sore throat Cardiovascular: no chest pain, no palpitations Respiratory: no cough, no shortness of breath Gastrointestinal: no nausea, no vomiting, no diarrhea Genitourinary Female: no pelvic pain, no flank pain, no dysuria, no hematuria Musculoskeletal: no neck pain, no low back pain Integumentary: rash, pruritis Neurological: no headaches, no confusion Psychiatric: no anxiety, no depression Endocrine: no polyphagia, no polydipsia, no polyuria, no nocturia Exam - Constitutional Vitals: Temp Pulse Resp BP Pulse Ox 99.7 F H 85 20 125/59 100 08/11/21 18:15 08/11/21 20:07 08/11/21 20:07 08/11/21 20:07 08/11/21 20:07 General appearance: Present: no acute distress, well-nourished, obese - EENT Eyes: Present: PERRL, EOM intact. Absent: scleral icterus ENT: hearing intact, clear oral mucosa, dentition normal - Neck Neck: Present: supple, normal ROM - Respiratory Respiratory effort: normal Respiratory: bilateral: diminished - Cardiovascular Rhythm: regular Heart Sounds: Present: S1 & S2. Absent: gallop, systolic murmur, diastolic murmur - Extremities Extremities: no ischemia, pulses intact, pulses symmetrical, No edema, normal temperature, normal color, Full ROM Peripheral Pulses: within normal limits - Abdominal General gastrointestinal: Present: soft, non-tender, non-distended, normal bowel sounds. Absent: mass - Integumentary Integumentary: Present: clear, warm, dry, normal turgor. Absent: rash - Musculoskeletal Musculoskeletal: strength equal bilaterally - Psychiatric Psychiatric: appropriate mood/affect, intact judgment & insight, memory intact, cooperative - Neurologic Neurologic: CNII-XII intact, no focal deficits, moves all extremities - Additional findings Additional findings: Skin: Generalized erythematous rash. HEART Score - HEART Score Troponin: Troponin T < 0.010 ng/mL (0.00-0.029) 08/11/21 20:07 Results - Labs CBC & Chem 7: 08/11/21 20:07 08/11/21 20:07 Labs: Abnormal lab results 08/11/21 08/11/21 08/11/21 Range/Units 20:07 20:07 20:07 WBC 26.0 H (4.5-11.0) K/mm3 Sodium 133 L (137-145) mmol/L Chloride 96.2 L (98-107) mmol/L Carbon Dioxide 20 L (22-30) mmol/L BUN 59 H (7-17) mg/dL Creatinine 3.8 H (0.6-1.2) mg/dL Glucose 185 H (65-100) mg/dL Lactic Acid 2.70 H* (0.7-2.0) mmol/L Calcium 8.1 L (8.4-10.2) mg/dL Total Protein 5.3 L (6.3-8.2) g/dL Albumin 3.3 L (3.9-5) g/dL Assessment and Plan - Patient Problems (1) Sepsis Current Visit: Yes Status: Acute Plan to address problem: Clear etiology unknown. Possibly secondary to underlying pneumonia. Patient started on empiric IV antibiotics and IV fluid. Will monitor labs. (2) Maculopapular rash, generalized Current Visit: Yes Status: Acute Plan to address problem: Etiology is unclear. We will continue on steroid cream. Consult placed to infectious disease for evaluation of further recommendations. Patient may require dermatology evaluation. (3) Pulmonary infiltrate Current Visit: Yes Status: Acute Plan to address problem: Patient is currently on empiric IV antibiotics for possible pneumonia. (4) Renal insufficiency Current Visit: Yes Status: Acute Plan to address problem: Patient has a baseline history of chronic kidney disease. Consult placed to nephrology for evaluation and recommendations. (5) Diabetes mellitus Current Visit: Yes Status: Acute Plan to address problem: Patient on sliding scale insulin. We will monitor Accu-Cheks. (6) Hypertension Current Visit: Yes Status: Acute Plan to address problem: We will resume routine home medications and monitor vital signs closely. (7) DVT prophylaxis Current Visit: Yes Status: Acute Plan to address problem: Patient placed on subcutaneous heparin. (8) Full code status Current Visit: Yes Status: Acute Plan to address problem: Patient is full code.
[2021-08-12 00:07] LABS: Basophils % (Manual) 0 % (0.0-1.8); Eosinophils % (Manual) 0 % (0.0-4.3); Total Cells Counted 100
[2021-08-12 00:08] LABS: Burr Cells Rare; Ovalocytes Few; Platelet Estimate Consistent w Auto
[2021-08-12] MEDS: SODIUM CHLORIDE 0.9% 1000 ML 1,000 ML IV SCH ×2 (06:04→17:25)
[2021-08-12] MEDS: HEPARIN 5,000 UNIT/1 ML VIAL SUB-Q SCH ×3 (06:04→22:02)
[2021-08-12 06:24] LABS: Hematocrit 33.4 % (30.3-42.9); Hemoglobin 10.7 gm/dl (10.1-14.3); Mean Corpuscular HGB Conc 32 % (30-34); Mean Corpuscular Volume 88 fl (79-97); Platelet Count 267 K/mm3 (140-440); Red Blood Count 3.79 M/mm3 (3.65-5.03); Red Cell Distribution Width 14.6 % (13.2-15.2)
[2021-08-12 07:02] LABS: Calcium 7.7 mg/dL (8.4-10.2)
[2021-08-12 07:09] LABS: Band Neutrophils # (Manual) 0.8 K/mm3; Basophils % (Manual) 0 % (0.0-1.8); Eosinophils % (Manual) 0 % (0.0-4.3); Monocytes % (Manual) 0 % (0.0-7.3); Total Cells Counted 100
[2021-08-12 07:11] LABS: Anisocytosis 1+; Platelet Estimate Consistent w Auto; Toxic Granulation 1+
[2021-08-12] MEDS ORDERED: INSULIN LISPRO 100 UNIT/ML SUB-Q SCH (07:30)
--- NOTE | 2021-08-12 07:45 | Progress Note ---
Assessment and Plan Assessment and plan: #Sepsis with shock -tachycardia, neutrophilic leukocytosis with hypotension -Continue antibiotics -Blood cultures collected; etiology unknown at this time, likely secondary to diffuse rash -Continue IV fluids -Infectious disease consulted, assistance appreciated #Maculopapular rash, generalized -Etiology is unclear. Given distribution and appearance, concerning for vasculitis -s/p Solu-Medrol in ED, will trial 60 mg prednisone daily -may need skin biopsy; FORTINO, complement levels ordered -Patient will require Dermatology evaluation at discharge, no Dermatology coverage in house -PRN benadryl for itching #Chronic Kidney Disease -no baseline labs to compare -patient reports hx of CKD with creatinine of ~3 -avoid nephrotoxins, renally dose medications -Nephrology consulted, assistance appreciated #Type II Diabetes mellitus -controlled, will continue SSI + accuchecks #Hypertension -patient with episodes of hypotension -will hold BP medications at this time #Advanced care planning -Disease education conducted, care plan discussed, diagnoses discussed, prognosis discussed, and patient acknowledges understanding with care plan -Time: +30 min History Interval history: No acute events overnight. Patient describes rash as burning and pruritic. She has not tried any creams or use any new perfumes/detergents. No other complaints at this time. Hospitalist Physical - Physical exam Narrative exam: GENERAL: Well-developed well-nourished. In no acute distress. HEENT: Erythema. Moist mucus membranes. No oral lesions noted. CHEST/LUNGS: CTAB on room air HEART/CARDIOVASCULAR: RRR. No murmur, rubs or gallops appreciated. ABDOMEN: +BS. NT/ND. SKIN: Diffuse erythema. Maculopapular rash with confluence most prominent on bilateral upper extremities, back and buttocks. Healing lesions and discoloration on chest and torso. NEURO: No focal motor deficit. Follows all commands. MUSCULOSKELETAL: No joint effusion EXTREMITIES: No cyanosis, clubbing or edema. PSYCH: Cooperative. - Constitutional Vitals: Temp Pulse Resp BP Pulse Ox 98.8 F 74 20 142/84 98 08/12/21 01:29 08/12/21 01:29 08/11/21 20:07 08/12/21 01:29 08/12/21 01:29 General appearance: Present: no acute distress, well-nourished, obese HEART Score - HEART Score Troponin: WBC 27.6 K/mm3 (4.5-11.0) H 08/12/21 05:48 RBC 3.79 M/mm3 (3.65-5.03) 08/12/21 05:48 Hgb 10.7 gm/dl (10.1-14.3) 08/12/21 05:48 Hct 33.4 % (30.3-42.9) 08/12/21 05:48 MCV 88 fl (79-97) 08/12/21 05:48 MCH 28 pg (28-32) 08/12/21 05:48 MCHC 32 % (30-34) 08/12/21 05:48 RDW 14.6 % (13.2-15.2) 08/12/21 05:48 Plt Count 267 K/mm3 (140-440) 08/12/21 05:48 Add Manual Diff Complete 08/12/21 05:48 Total Counted 100 08/12/21 05:48 Seg Neutrophils % Senior Windows Administrator 08/12/21 05:48 Seg Neuts % (Manual) 94.0 % (40.0-70.0) H 08/12/21 05:48 Band Neutrophils % 3.0 % 08/12/21 05:48 Lymphocytes % (Manual) 3.0 % (13.4-35.0) L 08/12/21 05:48 Reactive Lymphs % (Man) 0 % 08/12/21 05:48 Monocytes % (Manual) 0 % (0.0-7.3) 08/12/21 05:48 Eosinophils % (Manual) 0 % (0.0-4.3) 08/12/21 05:48 Basophils % (Manual) 0 % (0.0-1.8) 08/12/21 05:48 Metamyelocytes % 0 % 08/12/21 05:48 Myelocytes % 0 % 08/12/21 05:48 Promyelocytes % 0 % 08/12/21 05:48 Blast Cells % 0 % 08/12/21 05:48 Nucleated RBC % Not Reportable 08/12/21 05:48 Seg Neutrophils # Man 25.9 K/mm3 (1.8-7.7) H 08/12/21 05:48 Band Neutrophils # 0.8 K/mm3 08/12/21 05:48 Lymphocytes # (Manual) 0.8 K/mm3 (1.2-5.4) L 08/12/21 05:48 Abs React Lymphs (Man) 0.0 K/mm3 08/12/21 05:48 Monocytes # (Manual) 0.0 K/mm3 (0.0-0.8) 08/12/21 05:48 Eosinophils # (Manual) 0.0 K/mm3 (0.0-0.4) 08/12/21 05:48 Basophils # (Manual) 0.0 K/mm3 (0.0-0.1) 08/12/21 05:48 Metamyelocytes # 0.0 K/mm3 08/12/21 05:48 Myelocytes # 0.0 K/mm3 08/12/21 05:48 Promyelocytes # 0.0 K/mm3 08/12/21 05:48 Blast Cells # 0.0 K/mm3 08/12/21 05:48 WBC Morphology Not Reportable 08/12/21 05:48 Hypersegmented Neuts Not Reportable 08/12/21 05:48 Hyposegmented Neuts Not Reportable 08/12/21 05:48 Hypogranular Neuts Not Reportable 08/12/21 05:48 Smudge Cells Not Reportable 08/12/21 05:48 Toxic Granulation 1+ 08/12/21 05:48 Toxic Vacuolation Not Reportable 08/12/21 05:48 Dohle Bodies Not Reportable 08/12/21 05:48 Pelger-Huet Anomaly Not Reportable 08/12/21 05:48 Leonardo Rods Not Reportable 08/12/21 05:48 Platelet Estimate Consistent w auto 08/12/21 05:48 Clumped Platelets Not Reportable 08/12/21 05:48 Plt Clumps, EDTA Not Reportable 08/12/21 05:48 Large Platelets Not Reportable 08/12/21 05:48 Giant Platelets Not Reportable 08/12/21 05:48 Platelet Satelliting Not Reportable 08/12/21 05:48 Plt Morphology Comment Not Reportable 08/12/21 05:48 RBC Morphology Not Reportable 08/12/21 05:48 Dimorphic RBCs Not Reportable 08/12/21 05:48 Polychromasia Not Reportable 08/12/21 05:48 Hypochromasia Not Reportable 08/12/21 05:48 Poikilocytosis Not Reportable 08/12/21 05:48 Anisocytosis 1+ 08/12/21 05:48 Microcytosis Not Reportable 08/12/21 05:48 Macrocytosis Not Reportable 08/12/21 05:48 Spherocytes Not Reportable 08/12/21 05:48 Pappenheimer Bodies Not Reportable 08/12/21 05:48 Sickle Cells Not Reportable 08/12/21 05:48 Target Cells Not Reportable 08/12/21 05:48 Tear Drop Cells Not Reportable 08/12/21 05:48 Ovalocytes Not Reportable 08/12/21 05:48 Helmet Cells Not Reportable 08/12/21 05:48 Sow-[place]undarrach Bodies Not Reportable 08/12/21 05:48 [place] Rings Not Reportable 08/12/21 05:48 [place] Cells Not Reportable 08/12/21 05:48 Bite Cells Not Reportable 08/12/21 05:48 Crenated Cell Not Reportable 08/12/21 05:48 Elliptocytes Not Reportable 08/12/21 05:48 Acanthocytes (Spur) Not Reportable 08/12/21 05:48 Rouleaux Not Reportable 08/12/21 05:48 Hemoglobin C Crystals Not Reportable 08/12/21 05:48 Schistocytes Not Reportable 08/12/21 05:48 Malaria parasites Not Reportable 08/12/21 05:48 Christopher Bodies Not Reportable 08/12/21 05:48 Hem Pathologist Commnt No 08/12/21 05:48 Sodium 129 mmol/L (137-145) L 08/12/21 05:48 Potassium 4.8 mmol/L (3.6-5.0) 08/12/21 05:48 Chloride 94.2 mmol/L (98-107) L 08/12/21 05:48 Carbon Dioxide 18 mmol/L (22-30) L 08/12/21 05:48 Anion Gap 22 mmol/L 08/12/21 05:48 BUN 63 mg/dL (7-17) H 08/12/21 05:48 Creatinine 3.7 mg/dL (0.6-1.2) H 08/12/21 05:48 Estimated GFR 15 ml/min 08/12/21 05:48 BUN/Creatinine Ratio 17 % 08/12/21 05:48 Glucose 209 mg/dL (65-100) H 08/12/21 05:48 Lactic Acid 1.70 mmol/L (0.7-2.0) 08/11/21 23:43 Calcium 7.7 mg/dL (8.4-10.2) L 08/12/21 05:48 Total Bilirubin 0.60 mg/dL (0.1-1.2) 08/11/21 20:07 AST 22 units/L (5-40) 08/11/21 20:07 ALT 15 units/L (7-56) 08/11/21 20:07 Alkaline Phosphatase 74 units/L (35-129) 08/11/21 20:07 Troponin T < 0.010 ng/mL (0.00-0.029) 08/11/21 20:07 Total Protein 5.3 g/dL (6.3-8.2) L 08/11/21 20:07 Albumin 3.3 g/dL (3.9-5) L 08/11/21 20:07 Albumin/Globulin Ratio 1.7 % 08/11/21 20:07 TSH 3.020 mlU/mL (0.270-4.200) 08/11/21 20:07 Free T4 1.08 ng/dL (0.76-1.46) 08/11/21 20:07 Results - Labs CBC & Chem 7: 08/12/21 05:48 08/12/21 05:48 Labs: Laboratory Last Values WBC 27.6 K/mm3 (4.5-11.0) H 08/12/21 05:48 RBC 3.79 M/mm3 (3.65-5.03) 08/12/21 05:48 Hgb 10.7 gm/dl (10.1-14.3) 08/12/21 05:48 Hct 33.4 % (30.3-42.9) 08/12/21 05:48 MCV 88 fl (79-97) 08/12/21 05:48 MCH 28 pg (28-32) 08/12/21 05:48 MCHC 32 % (30-34) 08/12/21 05:48 RDW 14.6 % (13.2-15.2) 08/12/21 05:48 Plt Count 267 K/mm3 (140-440) 08/12/21 05:48 Add Manual Diff Complete 08/12/21 05:48 Total Counted 100 08/12/21 05:48 Seg Neutrophils % Senior Windows Administrator 08/12/21 05:48 Seg Neuts % (Manual) 94.0 % (40.0-70.0) H 08/12/21 05:48 Band Neutrophils % 3.0 % 08/12/21 05:48 Lymphocytes % (Manual) 3.0 % (13.4-35.0) L 08/12/21 05:48 Reactive Lymphs % (Man) 0 % 08/12/21 05:48 Monocytes % (Manual) 0 % (0.0-7.3) 08/12/21 05:48 Eosinophils % (Manual) 0 % (0.0-4.3) 08/12/21 05:48 Basophils % (Manual) 0 % (0.0-1.8) 08/12/21 05:48 Metamyelocytes % 0 % 08/12/21 05:48 Myelocytes % 0 % 08/12/21 05:48 Promyelocytes % 0 % 08/12/21 05:48 Blast Cells % 0 % 08/12/21 05:48 Nucleated RBC % Not Reportable 08/12/21 05:48 Seg Neutrophils # Man 25.9 K/mm3 (1.8-7.7) H 08/12/21 05:48 Band Neutrophils # 0.8 K/mm3 08/12/21 05:48 Lymphocytes # (Manual) 0.8 K/mm3 (1.2-5.4) L 08/12/21 05:48 Abs React Lymphs (Man) 0.0 K/mm3 08/12/21 05:48 Monocytes # (Manual) 0.0 K/mm3 (0.0-0.8) 08/12/21 05:48 Eosinophils # (Manual) 0.0 K/mm3 (0.0-0.4) 08/12/21 05:48 Basophils # (Manual) 0.0 K/mm3 (0.0-0.1) 08/12/21 05:48 Metamyelocytes # 0.0 K/mm3 08/12/21 05:48 Myelocytes # 0.0 K/mm3 08/12/21 05:48 Promyelocytes # 0.0 K/mm3 08/12/21 05:48 Blast Cells # 0.0 K/mm3 08/12/21 05:48 WBC Morphology Not Reportable 08/12/21 05:48 Hypersegmented Neuts Not Reportable 08/12/21 05:48 Hyposegmented Neuts Not Reportable 08/12/21 05:48 Hypogranular Neuts Not Reportable 08/12/21 05:48 Smudge Cells Not Reportable 08/12/21 05:48 Toxic Granulation 1+ 08/12/21 05:48 Toxic Vacuolation Not Reportable 08/12/21 05:48 Dohle Bodies Not Reportable 08/12/21 05:48 Pelger-Huet Anomaly Not Reportable 08/12/21 05:48 Leonardo Rods Not Reportable 08/12/21 05:48 Platelet Estimate Consistent w auto 08/12/21 05:48 Clumped Platelets Not Reportable 08/12/21 05:48 Plt Clumps, EDTA Not Reportable 08/12/21 05:48 Large Platelets Not Reportable 08/12/21 05:48 Giant Platelets Not Reportable 08/12/21 05:48 Platelet Satelliting Not Reportable 08/12/21 05:48 Plt Morphology Comment Not Reportable 08/12/21 05:48 RBC Morphology Not Reportable 08/12/21 05:48 Dimorphic RBCs Not Reportable 08/12/21 05:48 Polychromasia Not Reportable 08/12/21 05:48 Hypochromasia Not Reportable 08/12/21 05:48 Poikilocytosis Not Reportable 08/12/21 05:48 Anisocytosis 1+ 08/12/21 05:48 Microcytosis Not Reportable 08/12/21 05:48 Macrocytosis Not Reportable 08/12/21 05:48 Spherocytes Not Reportable 08/12/21 05:48 Pappenheimer Bodies Not Reportable 08/12/21 05:48 Sickle Cells Not Reportable 08/12/21 05:48 Target Cells Not Reportable 08/12/21 05:48 Tear Drop Cells Not Reportable 08/12/21 05:48 Ovalocytes Not Reportable 08/12/21 05:48 Helmet Cells Not Reportable 08/12/21 05:48 Sow-Dundarrach Bodies Not Reportable 08/12/21 05:48 [place] Rings Not Reportable 08/12/21 05:48 Jerilyn Cells Not Reportable 08/12/21 05:48 Bite Cells Not Reportable 08/12/21 05:48 Crenated Cell Not Reportable 08/12/21 05:48 Elliptocytes Not Reportable 08/12/21 05:48 Acanthocytes (Spur) Not Reportable 08/12/21 05:48 Rouleaux Not Reportable 08/12/21 05:48 Hemoglobin C Crystals Not Reportable 08/12/21 05:48 Schistocytes Not Reportable 08/12/21 05:48 Malaria parasites Not Reportable 08/12/21 05:48 Christopher Bodies Not Reportable 08/12/21 05:48 Hem Pathologist Commnt No 08/12/21 05:48 Sodium 129 mmol/L (137-145) L 08/12/21 05:48 Potassium 4.8 mmol/L (3.6-5.0) 08/12/21 05:48 Chloride 94.2 mmol/L (98-107) L 08/12/21 05:48 Carbon Dioxide 18 mmol/L (22-30) L 08/12/21 05:48 Anion Gap 22 mmol/L 08/12/21 05:48 BUN 63 mg/dL (7-17) H 08/12/21 05:48 Creatinine 3.7 mg/dL (0.6-1.2) H 08/12/21 05:48 Estimated GFR 15 ml/min 08/12/21 05:48 BUN/Creatinine Ratio 17 % 08/12/21 05:48 Glucose 209 mg/dL (65-100) H 08/12/21 05:48 Lactic Acid 1.70 mmol/L (0.7-2.0) 08/11/21 23:43 Calcium 7.7 mg/dL (8.4-10.2) L 08/12/21 05:48 Total Bilirubin 0.60 mg/dL (0.1-1.2) 08/11/21 20:07 AST 22 units/L (5-40) 08/11/21 20:07 ALT 15 units/L (7-56) 08/11/21 20:07 Alkaline Phosphatase 74 units/L (35-129) 08/11/21 20:07 Troponin T < 0.010 ng/mL (0.00-0.029) 08/11/21 20:07 Total Protein 5.3 g/dL (6.3-8.2) L 08/11/21 20:07 Albumin 3.3 g/dL (3.9-5) L 08/11/21 20:07 Albumin/Globulin Ratio 1.7 % 08/11/21 20:07 TSH 3.020 mlU/mL (0.270-4.200) 08/11/21 20:07 Free T4 1.08 ng/dL (0.76-1.46) 08/11/21 20:07 Microbiology: Microbiology 08/11/21 20:07 Peripheral/Venous Blood Culture - Preliminary Culture in Progress 08/11/21 20:07 Peripheral/Venous Blood Culture - Preliminary Culture in Progress Active Medications - Current Medications Current Medications: Generic Name Dose Route Start Last Admin Trade Name Freq PRN Reason Stop Dose Admin Acetaminophen 650 mg 08/11/21 23:37 Acetaminophen 325 Mg Tab PO Q4H PRN Pain MILD(1-3)/Fever >100.5/BLISS Dextrose 0 ml 08/11/21 23:51 Dextrose 10% *Hypoglycemia IV PRN PRN Hypoglycemia Heparin Sodium (Porcine) 5,000 unit 08/12/21 06:00 08/12/21 06:04 Heparin 5,000 Unit/1 Ml Vial SUB-Q 5,000 unit Q8HR DEVIKA Administration Sodium Chloride 1,000 mls @ 125 mls/hr 08/11/21 23:45 08/12/21 06:04 Nacl 0.9% 1000 Ml IV 125 mls/hr DIRECT DEVIKA Administration Cefepime HCl 2 gm in 100 mls @ 200 mls/hr 08/12/21 21:00 Cefepime/Ns 2 Gm/100 Ml IV Q24H DEVIKA Protocol Insulin Human Lispro 0 unit 08/12/21 07:30 Insulin Lispro 100 Unit/Ml SUB-Q ACHS DEVIKA Protocol Magnesium Hydroxide 30 ml 08/11/21 23:37 Magnesium Hydroxide (Mom) Oral Liqd Udc PO Q4H PRN Constipation Morphine Sulfate 2 mg 08/11/21 23:37 Morphine 2 Mg/1 Ml Inj IV Q4H PRN Pain, Moderate (4-6) Morphine Sulfate 4 mg 08/11/21 23:37 Morphine 4 Mg/1 Ml Inj IV Q4H PRN Pain , Severe (7-10) Ondansetron HCl 4 mg 08/11/21 23:37 Ondansetron 4 Mg/2 Ml Inj IV Q8H PRN Nausea And Vomiting Sodium Chloride 10 ml 08/12/21 10:00 Sodium Chloride 0.9% 10 Ml Flush Syringe IV BID DEVIKA Sodium Chloride 10 ml 08/11/21 23:37 Sodium Chloride 0.9% 10 Ml Flush Syringe IV PRN PRN LINE FLUSH
[2021-08-12] MEDS: INSULIN LISPRO 100 UNIT/ML SUB-Q SCH ×4 (08:58→22:01)
--- NOTE | 2021-08-12 12:28 | Consultation ---
History of Present Illness - Reason for Consult Consult date: 08/12/21 acute renal failure - History of Present Illness Mrs. Bell is a 70yo w/ stage II CKD, hypertension, type II diabetes who presented to the hospital complaining of generalized weakness since this morning. She reports being in usual state of health until Aug 03 when she developed rash. Rash initially started on trunk and the progresseively spread. Patient now c/o diffuse, pruritic rash. She denies new medications or prior history. Mrs. Bell is followed by Dr. Anna. Her last visit was in Apr 2021. At that time, SCr 1.06mg/dL. Patient now with creatinine 3.8mg/dL. Nephrology consulted for evaluation/management of NUNO She denies epistaxis, hemoptysis, hematuria. She reports daily NSAID use - Stanback powder. Past History Past Medical History: diabetes, hypertension, renal failure, other (Gout, noncancerous breast mass) Past Surgical History: Other (Yes (3 RIGHT BX; 1 LEFT BX), hysterectomy, thyriodectomy, bilateral TKR) Social history: no significant social history Family history: no significant family history Medications and Allergies Allergies Allergy/AdvReac Type Severity Reaction Status Date / Time No Known Allergies Allergy Verified 08/11/21 18:17 Home Medications Medication Instructions Recorded Confirmed Last Taken Type Metformin HCl 500 mg PO BID 03/26/13 08/12/21 08/11/21 History Cholecalciferol (Vitamin D3) 3,000 unit PO DAILY 01/13/20 08/12/21 08/11/21 History [Vitamin D3 3,000 unit] Doxazosin [Cardura] 4 mg PO BID 01/13/20 08/12/21 08/11/21 History Ferrous Sulfate [Feosol] 325 mg PO QDAY 01/13/20 08/12/21 08/11/21 History Furosemide [Lasix TAB] 40 mg PO QDAY 01/13/20 08/12/21 08/11/21 History Multivit-Min36/Iron/Folic Acid 1 each PO DAILY 01/13/20 08/12/21 08/10/21 History [Geritol Complete Tablet] Prednisone [predniSONE (Janell) ER 5 mg PO QDAY 01/13/20 08/12/21 08/10/21 History TAB] Simvastatin 10 mg PO QHS 08/08/12/21 08/10/21 History Vitamin E Mixed [Vitamin E] 1,000 unit PO DAILY 01/13/20 08/12/21 08/11/21 History allopurinoL [Zyloprim] 300 mg PO QDAY 01/13/20 08/12/21 08/11/21 History Gabapentin 300 mg PO BID 08/12/21 08/12/21 08/11/21 History Labetalol HCl [Labetalol 300mg TAB] 300 mg PO BID 08/12/21 08/12/21 08/11/21 History Losartan-Hctz 100-25 mg Tab 1 tab PO QDAY 08/12/21 08/12/21 08/11/21 History Montelukast [Singulair] 10 mg PO QDAY 08/12/21 08/12/21 08/11/21 History glipiZIDE 10 mg QAM 08/12/21 08/12/21 08/11/21 History Active Meds: Active Medications Acetaminophen (Acetaminophen 325 Mg Tab) 650 mg PO Q4H PRN PRN Reason: Pain MILD(1-3)/Fever >100.5/BLISS Dextrose (Dextrose 10% *Hypoglycemia) 0 ml IV PRN PRN PRN Reason: Hypoglycemia Heparin Sodium (Porcine) (Heparin 5,000 Unit/1 Ml Vial) 5,000 unit SUB-Q Q8HR DEVIKA Last Admin: 08/12/21 06:04 Dose: 5,000 unit Sodium Chloride (Nacl 0.9% 1000 Ml) 1,000 mls @ 125 mls/hr IV DIRECT DEVIKA Last Admin: 08/12/21 06:04 Dose: 125 mls/hr Cefepime HCl (Cefepime/Ns 2 Gm/100 Ml) 2 gm in 100 mls @ 200 mls/hr IV Q24H DEVIKA; Protocol Insulin Human Lispro (Insulin Lispro 100 Unit/Ml) 0 unit SUB-Q ACHS DVEIKA; Protocol Last Admin: 08/12/21 12:18 Dose: 6 unit Magnesium Hydroxide (Magnesium Hydroxide (Mom) Oral Liqd Udc) 30 ml PO Q4H PRN PRN Reason: Constipation Morphine Sulfate (Morphine 2 Mg/1 Ml Inj) 2 mg IV Q4H PRN PRN Reason: Pain, Moderate (4-6) Morphine Sulfate (Morphine 4 Mg/1 Ml Inj) 4 mg IV Q4H PRN PRN Reason: Pain , Severe (7-10) Ondansetron HCl (Ondansetron 4 Mg/2 Ml Inj) 4 mg IV Q8H PRN PRN Reason: Nausea And Vomiting Sodium Chloride (Sodium Chloride 0.9% 10 Ml Flush Syringe) 10 ml IV BID DEVIKA Last Admin: 08/12/21 09:04 Dose: 10 ml Sodium Chloride (Sodium Chloride 0.9% 10 Ml Flush Syringe) 10 ml IV PRN PRN PRN Reason: LINE FLUSH Review of Systems All systems: negative Exam - Vital Signs Vital signs: Vital Signs Temp Pulse Resp BP Pulse Ox 99.7 F H 88 18 148/102 100 08/11/21 18:15 08/11/21 18:15 08/11/21 18:15 08/11/21 18:15 08/11/21 18:15 - General Appearance General appearance: well-developed, well-nourished EENT: ATNC Neck: Present: neck supple Respiratory: Clear to Ascultation Heart: regular, S1S2 Gastrointestinal: Present: normal. 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 No acute indication for renal replacement therapy at this time * Continue IVF * Obtain serologic work up * Obtain urine studies * Obtain renal ultrasound * Note addition of prednisone * Patient advised to avoid future use of NSAIDs (takes [place] powder daily) * Dose medications for renal function * May require biopsy if renal function fails to improve
--- NOTE | 2021-08-12 13:10 | Consultation ---
History of Present Illness - Reason for Consult Consult date: 08/12/21 sepsis, pruritic rash Requesting physician: REYNOLD FLYNN - History of Present Illness The patient is a 70-year-old female with hypertension, CKD, diabetes, gout recently developed a generalized rash for which she saw her PCP and was given a Benadryl injection and a steroid cream. This started to get worse, also started feeling weak, she came to the hospital, chest x-ray showed no pneumonia, possible edema, afebrile, labs revealed leukocytosis and elevated creatinine of 3.8. ID consulted for additional eval. denies any fever or chills. Lives with her daughter and her . One dog. No new chemical exposure, soaps, change in medications recently. Rash is itchy, not painful, no oral involvement. Review of Systems: General: no fevers,chills or rigors HEENT: no new visual disturbance Respiratory: No cough, sputum, hemoptysis or shortness of breath Cardiovascular: No chest pain, syncope Gastrointestinal: No nausea, vomiting or diarrhea Genitourinary: No dysuria or hematuria Musculoskeletal: No new or worsening neck pain or back pain Neurologic: No headaches, seizures Hematologic: No easy bruising or bleeding Endocrine: No night sweats or acute weight loss Skin: rash as above. Psychiatric: No suicidal or homicidal ideation Past History Past Medical History: diabetes, hypertension, renal failure, other (Gout, noncancerous breast mass) Past Surgical History: Other (Yes (3 RIGHT BX; 1 LEFT BX), hysterectomy, thyriodectomy, bilateral TKR) Social history: no significant social history Family history: no significant family history Medications and Allergies Allergies Allergy/AdvReac Type Severity Reaction Status Date / Time No Known Allergies Allergy Verified 08/11/21 18:17 Home Medications Medication Instructions Recorded Confirmed Last Taken Type Metformin HCl 500 mg PO BID 03/26/13 01/13/20 01/21/20 History Cholecalciferol (Vitamin D3) 3,000 unit PO DAILY 01/13/20 01/13/20 01/21/20 History [Vitamin D3 3,000 unit] Doxazosin [Cardura] 4 mg PO QDAY 01/13/20 01/13/20 01/21/20 History Ferrous Sulfate [Feosol] 325 mg PO QDAY 01/13/20 01/13/20 01/21/20 History Furosemide [Lasix TAB] 40 mg PO QDAY 01/13/20 01/13/20 01/21/20 History Multivit-Min36/Iron/Folic Acid 1 each PO DAILY 01/13/20 01/13/20 01/21/20 History [Geritol Complete Tablet] Prednisone [predniSONE (Janell) ER 5 mg PO QDAY 01/13/20 01/13/20 01/22/20 05:30 History TAB] Simvastatin 10 mg PO QHS 01/13/20 01/13/20 01/21/20 History Valsartan/Hydrochlorothiazide 1 each PO DAILY 01/13/20 01/13/20 01/21/20 History [Valsartan-Hctz 160-25 mg Tab] Vitamin E Mixed [Vitamin E] 1,000 unit PO DAILY 01/13/20 01/13/20 01/21/20 History allopurinoL [Zyloprim] 300 mg PO QDAY 01/13/20 01/13/20 01/21/20 History amLODIPine [Norvasc] 10 mg PO DAILY 01/13/20 01/13/20 01/22/20 05:30 History carvediloL [Coreg] 25 mg PO BID 01/22/20 01/22/20 01/22/20 05:30 History oxyCODONE /ACETAMINOPHEN [Percocet 1 tab PO Q6HR PRN #15 tablet 01/22/20 Unknown Rx 5/325] Active Meds: Active Medications Acetaminophen (Acetaminophen 325 Mg Tab) 650 mg PO Q4H PRN PRN Reason: Pain MILD(1-3)/Fever >100.5/BLISS Dextrose (Dextrose 10% *Hypoglycemia) 0 ml IV PRN PRN PRN Reason: Hypoglycemia Heparin Sodium (Porcine) (Heparin 5,000 Unit/1 Ml Vial) 5,000 unit SUB-Q Q8HR DEVIKA Last Admin: 08/12/21 06:04 Dose: 5,000 unit Sodium Chloride (Nacl 0.9% 1000 Ml) 1,000 mls @ 125 mls/hr IV DIRECT DEVIKA Last Admin: 08/12/21 06:04 Dose: 125 mls/hr Cefepime HCl (Cefepime/Ns 2 Gm/100 Ml) 2 gm in 100 mls @ 200 mls/hr IV Q24H DEVIKA; Protocol Insulin Human Lispro (Insulin Lispro 100 Unit/Ml) 0 unit SUB-Q ACHS DEVIKA; Protocol Last Admin: 08/12/21 12:18 Dose: 6 unit Magnesium Hydroxide (Magnesium Hydroxide (Mom) Oral Liqd Udc) 30 ml PO Q4H PRN PRN Reason: Constipation Morphine Sulfate (Morphine 2 Mg/1 Ml Inj) 2 mg IV Q4H PRN PRN Reason: Pain, Moderate (4-6) Morphine Sulfate (Morphine 4 Mg/1 Ml Inj) 4 mg IV Q4H PRN PRN Reason: Pain , Severe (7-10) Ondansetron HCl (Ondansetron 4 Mg/2 Ml Inj) 4 mg IV Q8H PRN PRN Reason: Nausea And Vomiting Sodium Chloride (Sodium Chloride 0.9% 10 Ml Flush Syringe) 10 ml IV BID [facility] Last Admin: 08/12/21 09:04 Dose: 10 ml Sodium Chloride (Sodium Chloride 0.9% 10 Ml Flush Syringe) 10 ml IV PRN PRN PRN Reason: LINE FLUSH Physical Examination - Physical Exam Narrative exam: Physical Exam: Constitutional: Alert, cooperative. No acute distress Head, Ears, Nose: Normocephalic, atraumatic. External ears, nose normal Eyes: Conjunctivae/corneas clear. No icterus. No ptosis. Neck: Supple, no meningeal signs Oral: no sores, no thrush Cardiovascular: S1, S2 + Respiratory: Good air entry, clear to auscultation bilaterally GI: Soft, non-tender; bowel sounds normal. No peritoneal signs Musculoskeletal: No pedal edema, no cyanosis. Skin: diffuse patchy erythematous maculopapular rash Hem/Lymphatic: No palpable cervical or supraclavicular nodes. No lymphangitis Psych: Mood ok. Affect normal Neurological: Awake, alert, oriented. No gross abnormality - Constitutional Vitals: Vital Signs Temp Pulse Resp BP Pulse Ox 98.0 F 104 H 18 135/59 96 08/12/21 11:28 08/12/21 11:28 08/12/21 11:28 08/12/21 11:28 08/12/21 11:28 Temperature -Last 24 Hours Temperature 98.0 F Temperature 98.2 F Temperature 98.8 F Temperature 99.7 F Results - Labs CBC & Chem 7: 08/12/21 05:48 08/12/21 05:48 Labs: Abnormal lab results 08/11/21 08/11/21 08/11/21 Range/Units 20:07 20:07 20:07 WBC 26.0 H (4.5-11.0) K/mm3 Seg Neuts % (Manual) 95.0 H (40.0-70.0) % Lymphocytes % (Manual) 4.0 L (13.4-35.0) % Seg Neutrophils # Man 24.7 H (1.8-7.7) K/mm3 Lymphocytes # (Manual) 1.0 L (1.2-5.4) K/mm3 Sodium 133 L (137-145) mmol/L Chloride 96.2 L (98-107) mmol/L Carbon Dioxide 20 L (22-30) mmol/L BUN 59 H (7-17) mg/dL Creatinine 3.8 H (0.6-1.2) mg/dL Glucose 185 H (65-100) mg/dL POC Glucose (70-105) mg/dL Lactic Acid 2.70 H* (0.7-2.0) mmol/L Calcium 8.1 L (8.4-10.2) mg/dL Total Protein 5.3 L (6.3-8.2) g/dL Albumin 3.3 L (3.9-5) g/dL 08/12/21 08/12/21 08/12/21 Range/Units 05:48 05:48 11:36 WBC 27.6 H (4.5-11.0) K/mm3 Seg Neuts % (Manual) 94.0 H (40.0-70.0) % Lymphocytes % (Manual) 3.0 L (13.4-35.0) % Seg Neutrophils # Man 25.9 H (1.8-7.7) K/mm3 Lymphocytes # (Manual) 0.8 L (1.2-5.4) K/mm3 Sodium 129 L (137-145) mmol/L Chloride 94.2 L (98-107) mmol/L Carbon Dioxide 18 L (22-30) mmol/L BUN 63 H (7-17) mg/dL Creatinine 3.7 H (0.6-1.2) mg/dL Glucose 209 H (65-100) mg/dL POC Glucose 232 H (70-105) mg/dL Lactic Acid (0.7-2.0) mmol/L Calcium 7.7 L (8.4-10.2) mg/dL Total Protein (6.3-8.2) g/dL Albumin (3.9-5) g/dL - Imaging and Cardiology Chest x-ray: report reviewed, image reviewed (no pneumonia seen) Assessment and Plan Cultures: 08/11/2021 blood culture: In process A/P: 70-year-old female with hypertension, CKD, diabetes, gout recently developed a generalized rash for which she saw her PCP and was given a Benadryl injection and a steroid cream. This started to get worse, also started feeling weak: #Neutrophilic leukocytosis: ?Reactive. Doubt infectious etiology #Acute renal failure: nephrology consulted. #Diffuse erythematous maculopapular rash: No oral involvement. #Gout #Hypertension Recs: -Check UA -Follow-up autoimmune work-up ordered per nephrology -FORTINO ordered -low suspicion for acute bacterial infection. Vancomycin discontinued today -if blood cultures negative, anticipate stopping cefepime -If diagnostic work-up is unrevealing, may need a skin biopsy, possibly might need renal biopsy as well, defer to nephrology Leslie Duncan MD, [facility] O: [phone] F: [phone] C: [phone]
[2021-08-12] MEDS: diphenhydrAMINE 50 MG/ML VIAL IV PRN ×2 (14:05→22:08)
[2021-08-12] MEDS: predniSONE 20 MG TAB PO SCH (14:05)
[2021-08-12 16:04] LABS: Bacteria,Urine 2+ /HPF (Negative); Bilirubin,Urine NEG (Negative); Blood,Urine MOD (Negative); Color,Urine Yellow (Yellow); Mucus,Urine FEW /HPF; Protein,Urine <15 mg/dL mg/dL (Negative); Urobilinogen,Urine < 2.0 mg/dL (<2.0)
[2021-08-12 16:32] LABS: Creatinine,Urine 100.5 mg/dL (0.1-20.0); Protein/Creatinine Ratio,Urine 0.19
[2021-08-12] MEDS: ACETAMINOPHEN 325 MG TAB PO PRN (17:35)
[2021-08-12] MEDS ORDERED: CEFEPIME/NS 2 GM/100 ML 2 GM/100 ML BAG IV SCH (21:00)
[2021-08-13] MEDS: HEPARIN 5,000 UNIT/1 ML VIAL SUB-Q SCH ×3 (05:42→21:15)
[2021-08-13 06:12] LABS: Hematocrit 30.7 % (30.3-42.9); Hemoglobin 10.1 gm/dl (10.1-14.3); Mean Corpuscular HGB Conc 33 % (30-34); Mean Corpuscular Volume 87 fl (79-97); Platelet Count 301 K/mm3 (140-440); Red Blood Count 3.52 M/mm3 (3.65-5.03); Red Cell Distribution Width 14.4 % (13.2-15.2)
[2021-08-13 06:35] LABS: Calcium 8.4 mg/dL (8.4-10.2)
[2021-08-13 06:57] LABS: Hepatitis B Surface Antigen Non-Reactive (Negative); Hepatitis C Virus Antibody Non-Reactive (NonReactive)
[2021-08-13] MEDS: INSULIN LISPRO 100 UNIT/ML SUB-Q SCH ×4 (08:08→22:03)
[2021-08-13] MEDS: predniSONE 20 MG TAB PO SCH (09:03)
[2021-08-13] MEDS ORDERED: diphenhydrAMINE 25 MG CAP PO PRN (10:28)
--- NOTE | 2021-08-13 10:33 | Progress Note ---
Assessment and Plan Assessment and plan: #Sepsis with shock-improving -BP improved -tachycardia improving, continued neutrophilic leukocytosis -leukocytosis worsening likely reactive to steroids -Continue cefep -Blood cultures collected; etiology unknown at this time, likely secondary to diffuse rash -Continue IV fluids -Infectious disease consulted, assistance appreciated #Maculopapular rash, generalized -lesions are now forming bullae and sloughing in some places -Etiology is unclear. Given distribution and appearance, concerning for vasculitis vs bullous pemphigoid vs urticarial rash -s/p Solu-Medrol in ED, continue 60 mg prednisone daily -may need skin biopsy; FORTINO, complement levels ordered -Patient will require Dermatology evaluation at discharge, no Dermatology coverage in house -PRN benadryl for itching #Acute kidney injury superimposed on CKD -Cr improved to 2.2 -will continue IVFs -patient reports hx of CKD with creatinine of ~3 -avoid nephrotoxins, renally dose medications -Nephrology consulted, assistance appreciated #Type II Diabetes mellitus -controlled, will continue SSI + accuchecks #Hypertension -hypotension resolved -will restart home BP medications based on BP trend while inpatient #Advanced care planning -Disease education conducted, care plan discussed, diagnoses discussed, prognosis discussed, and patient acknowledges understanding with care plan -Time: +30 min History Interval history: No acute events overnight. Patient describes rash as burning and pruritic. Benadryl helps with itching when given. No complaints at this time. Hospitalist Physical - Physical exam Narrative exam: GENERAL: Well-developed well-nourished. In no acute distress. HEENT: Erythema. Moist mucus membranes. No oral lesions noted. CHEST/LUNGS: CTAB on room air HEART/CARDIOVASCULAR: RRR. No murmur, rubs or gallops appreciated. ABDOMEN: +BS. NT/ND. SKIN: Diffuse erythema. Maculopapular rash with confluence and bullae most prominent on bilateral upper extremities, back and buttocks. Healing lesions and discoloration on chest and torso. NEURO: No focal motor deficit. Follows all commands. MUSCULOSKELETAL: No joint effusion EXTREMITIES: No cyanosis, clubbing or edema. PSYCH: Cooperative. - Constitutional Vitals: Temp Pulse Resp BP Pulse Ox 98.5 F 91 H 20 138/53 98 08/13/21 04:30 08/13/21 04:30 08/13/21 04:30 08/13/21 04:30 08/13/21 09:46 General appearance: Present: no acute distress, well-nourished, obese HEART Score - HEART Score Troponin: Troponin T < 0.010 ng/mL (0.00-0.029) 08/11/21 20:07 Results - Labs CBC & Chem 7: 08/13/21 05:02 08/13/21 05:02 Labs: Laboratory Last Values WBC 33.1 K/mm3 (4.5-11.0) H 08/13/21 05:02 RBC 3.52 M/mm3 (3.65-5.03) L 08/13/21 05:02 Hgb 10.1 gm/dl (10.1-14.3) 08/13/21 05:02 Hct 30.7 % (30.3-42.9) 08/13/21 05:02 MCV 87 fl (79-97) 08/13/21 05:02 MCH 29 pg (28-32) 08/13/21 05:02 MCHC 33 % (30-34) 08/13/21 05:02 RDW 14.4 % (13.2-15.2) 08/13/21 05:02 Plt Count 301 K/mm3 (140-440) 08/13/21 05:02 Add Manual Diff Complete 08/12/21 05:48 Total Counted 100 08/12/21 05:48 Seg Neutrophils % Application Security Consultant 08/12/21 05:48 Seg Neuts % (Manual) 94.0 % (40.0-70.0) H 08/12/21 05:48 Band Neutrophils % 3.0 % 08/12/21 05:48 Lymphocytes % (Manual) 3.0 % (13.4-35.0) L 08/12/21 05:48 Reactive Lymphs % (Man) 0 % 08/12/21 05:48 Monocytes % (Manual) 0 % (0.0-7.3) 08/12/21 05:48 Eosinophils % (Manual) 0 % (0.0-4.3) 08/12/21 05:48 Basophils % (Manual) 0 % (0.0-1.8) 08/12/21 05:48 Metamyelocytes % 0 % 08/12/21 05:48 Myelocytes % 0 % 08/12/21 05:48 Promyelocytes % 0 % 08/12/21 05:48 Blast Cells % 0 % 08/12/21 05:48 Nucleated RBC % Not Reportable 08/12/21 05:48 Seg Neutrophils # Man 25.9 K/mm3 (1.8-7.7) H 08/12/21 05:48 Band Neutrophils # 0.8 K/mm3 08/12/21 05:48 Lymphocytes # (Manual) 0.8 K/mm3 (1.2-5.4) L 08/12/21 05:48 Abs React Lymphs (Man) 0.0 K/mm3 08/12/21 05:48 Monocytes # (Manual) 0.0 K/mm3 (0.0-0.8) 08/12/21 05:48 Eosinophils # (Manual) 0.0 K/mm3 (0.0-0.4) 08/12/21 05:48 Basophils # (Manual) 0.0 K/mm3 (0.0-0.1) 08/12/21 05:48 Metamyelocytes # 0.0 K/mm3 08/12/21 05:48 Myelocytes # 0.0 K/mm3 08/12/21 05:48 Promyelocytes # 0.0 K/mm3 08/12/21 05:48 Blast Cells # 0.0 K/mm3 08/12/21 05:48 WBC Morphology Not Reportable 08/12/21 05:48 Hypersegmented Neuts Not Reportable 08/12/21 05:48 Hyposegmented Neuts Not Reportable 08/12/21 05:48 Hypogranular Neuts Not Reportable 08/12/21 05:48 Smudge Cells Not Reportable 08/12/21 05:48 Toxic Granulation 1+ 08/12/21 05:48 Toxic Vacuolation Not Reportable 08/12/21 05:48 Dohle Bodies Not Reportable 08/12/21 05:48 Pelger-Huet Anomaly Not Reportable 08/12/21 05:48 Leonardo Rods Not Reportable 08/12/21 05:48 Platelet Estimate Consistent w auto 08/12/21 05:48 Clumped Platelets Not Reportable 08/12/21 05:48 Plt Clumps, EDTA Not Reportable 08/12/21 05:48 Large Platelets Not Reportable 08/12/21 05:48 Giant Platelets Not Reportable 08/12/21 05:48 Platelet Satelliting Not Reportable 08/12/21 05:48 Plt Morphology Comment Not Reportable 08/12/21 05:48 RBC Morphology Not Reportable 08/12/21 05:48 Dimorphic RBCs Not Reportable 08/12/21 05:48 Polychromasia Not Reportable 08/12/21 05:48 Hypochromasia Not Reportable 08/12/21 05:48 Poikilocytosis Not Reportable 08/12/21 05:48 Anisocytosis 1+ 08/12/21 05:48 Microcytosis Not Reportable 08/12/21 05:48 Macrocytosis Not Reportable 08/12/21 05:48 Spherocytes Not Reportable 08/12/21 05:48 Pappenheimer Bodies Not Reportable 08/12/21 05:48 Sickle Cells Not Reportable 08/12/21 05:48 Target Cells Not Reportable 08/12/21 05:48 Tear Drop Cells Not Reportable 08/12/21 05:48 Ovalocytes Not Reportable 08/12/21 05:48 Helmet Cells Not Reportable 08/12/21 05:48 Sow-[place] Bodies Not Reportable 08/12/21 05:48 [place] Rings Not Reportable 08/12/21 05:48 Jerilyn Cells Not Reportable 08/12/21 05:48 Bite Cells Not Reportable 08/12/21 05:48 Crenated Cell Not Reportable 08/12/21 05:48 Elliptocytes Not Reportable 08/12/21 05:48 Acanthocytes (Spur) Not Reportable 08/12/21 05:48 Rouleaux Not Reportable 08/12/21 05:48 Hemoglobin C Crystals Not Reportable 08/12/21 05:48 Schistocytes Not Reportable 08/12/21 05:48 Malaria parasites Not Reportable 08/12/21 05:48 Christopher Bodies Not Reportable 08/12/21 05:48 Hem Pathologist Commnt No 08/12/21 05:48 Sodium 131 mmol/L (137-145) L 08/13/21 05:02 Potassium 4.4 mmol/L (3.6-5.0) 08/13/21 05:02 Chloride 98.6 mmol/L (98-107) 08/13/21 05:02 Carbon Dioxide 18 mmol/L (22-30) L 08/13/21 05:02 Anion Gap 19 mmol/L 08/13/21 05:02 BUN 66 mg/dL (7-17) H 08/13/21 05:02 Creatinine 2.2 mg/dL (0.6-1.2) H 08/13/21 05:02 Estimated GFR 27 ml/min 08/13/21 05:02 BUN/Creatinine Ratio 30 % 08/13/21 05:02 Glucose 179 mg/dL (65-100) H 08/13/21 05:02 POC Glucose 185 mg/dL (70-105) H 08/13/21 07:24 Lactic Acid 1.70 mmol/L (0.7-2.0) 08/11/21 23:43 Calcium 8.4 mg/dL (8.4-10.2) 08/13/21 05:02 Total Bilirubin 0.60 mg/dL (0.1-1.2) 08/11/21 20:07 AST 22 units/L (5-40) 08/11/21 20:07 ALT 15 units/L (7-56) 08/11/21 20:07 Alkaline Phosphatase 74 units/L (35-129) 08/11/21 20:07 Troponin T < 0.010 ng/mL (0.00-0.029) 08/11/21 20:07 Total Protein 5.3 g/dL (6.3-8.2) L 08/11/21 20:07 Albumin 3.3 g/dL (3.9-5) L 08/11/21 20:07 Albumin/Globulin Ratio 1.7 % 08/11/21 20:07 TSH 3.020 mlU/mL (0.270-4.200) 08/11/21 20:07 Free T4 1.08 ng/dL (0.76-1.46) 08/11/21 20:07 Urine Color Yellow (Yellow) 08/12/21 15:47 Urine Turbidity Slightly-cloudy (Clear) 08/12/21 15:47 Urine pH 5.0 (5.0-7.0) 08/12/21 15:47 Ur Specific [place] 1.009 (1.003-1.030) 08/12/21 15:47 Urine Protein <15 mg/dl mg/dL (Negative) 08/12/21 15:47 Urine Glucose (UA) Neg mg/dL (Negative) 08/12/21 15:47 Urine Ketones Neg mg/dL (Negative) 08/12/21 15:47 Urine Blood Mod (Negative) 08/12/21 15:47 Urine Nitrite Neg (Negative) 08/12/21 15:47 Urine Bilirubin Neg (Negative) 08/12/21 15:47 Urine Urobilinogen < 2.0 mg/dL (<2.0) 08/12/21 15:47 Ur Leukocyte Esterase Neg (Negative) 08/12/21 15:47 Urine WBC (Auto) 6.0 /HPF (0.0-6.0) 08/12/21 15:47 Urine RBC (Auto) 3.0 /HPF (0.0-6.0) 08/12/21 15:47 U Epithel Cells (Auto) 14.0 /HPF (0-13.0) H 08/12/21 15:47 Urine Bacteria (Auto) 2+ /HPF (Negative) 08/12/21 15:47 Urine Mucus Few /HPF 08/12/21 15:47 Urine Creatinine 100.5 mg/dL (0.1-20.0) H 08/12/21 15:47 Protein/Creatinin Ratio 0.19 08/12/21 15:47 Urine Sodium 12 mmol/L 08/12/21 15:47 Urine Total Protein 19 mg/dL (5-11.8) H 08/12/21 15:47 Random Vancomycin 10.3 ug/mL (0-40.0) 08/13/21 05:02 Coronavirus (PCR) Negative (Negative) 08/11/21 08:01 Hepatitis A IgM Ab Non-reactive (NonReactive) 08/13/21 05:02 Hep Bs Antigen Non-reactive (Negative) 08/13/21 05:02 Hep B Core IgM Ab Non-reactive (NonReactive) 08/13/21 05:02 Hepatitis C Antibody Non-reactive (NonReactive) 08/13/21 05:02 Microbiology: Microbiology 08/11/21 20:07 Peripheral/Venous Blood Culture - Preliminary NO GROWTH AFTER 24 HOURS 08/11/21 20:07 Peripheral/Venous Blood Culture - Preliminary NO GROWTH AFTER 24 HOURS Powell/IV: Voiding Method Toilet Active Medications - Current Medications Current Medications: Generic Name Dose Route Start Last Admin Trade Name Freq PRN Reason Stop Dose Admin Acetaminophen 650 mg 08/11/21 23:37 08/12/21 17:35 Acetaminophen 325 Mg Tab PO 650 mg Q4H PRN Administration Pain MILD(1-3)/Fever >100.5/BLISS Dextrose 0 ml 08/11/21 23:51 Dextrose 10% *Hypoglycemia IV PRN PRN Hypoglycemia Diphenhydramine HCl 25 mg 08/13/21 10:28 Diphenhydramine 25 Mg Cap PO Q6H PRN Itching Heparin Sodium (Porcine) 5,000 unit 08/12/21 06:00 08/13/21 05:42 Heparin 5,000 Unit/1 Ml Vial SUB-Q 5,000 unit Q8HR DEVIKA Administration Sodium Chloride 1,000 mls @ 125 mls/hr 08/11/21 23:45 08/12/21 17:25 Nacl 0.9% 1000 Ml IV 125 mls/hr DIRECT DEVIKA Administration Cefepime HCl 2 gm in 100 mls @ 200 mls/hr 08/12/21 21:00 08/12/21 22:08 Cefepime/Ns 2 Gm/100 Ml IV 200 mls/hr Q24H DEVIKA Administration Protocol Insulin Human Lispro 0 unit 08/12/21 07:30 08/13/21 08:08 Insulin Lispro 100 Unit/Ml SUB-Q 2 unit ACHS DEVIKA Administration Protocol Magnesium Hydroxide 30 ml 08/11/21 23:37 Magnesium Hydroxide (Mom) Oral Liqd Udc PO Q4H PRN Constipation Morphine Sulfate 2 mg 08/11/21 23:37 Morphine 2 Mg/1 Ml Inj IV Q4H PRN Pain, Moderate (4-6) Morphine Sulfate 4 mg 08/11/21 23:37 08/13/21 03:25 Morphine 4 Mg/1 Ml Inj IV 4 mg Q4H PRN Administration Pain , Severe (7-10) Ondansetron HCl 4 mg 08/11/21 23:37 Ondansetron 4 Mg/2 Ml Inj IV Q8H PRN Nausea And Vomiting Prednisone 60 mg 08/12/21 14:00 08/13/21 09:03 Prednisone 20 Mg Tab PO 60 mg QDAY DEVIKA Administration Sodium Chloride 10 ml 08/12/21 10:00 08/13/21 09:03 Sodium Chloride 0.9% 10 Ml Flush Syringe IV 10 ml BID DEVIKA Administration Sodium Chloride 10 ml 08/11/21 23:37 Sodium Chloride 0.9% 10 Ml Flush Syringe IV PRN PRN LINE FLUSH Nutrition/Malnutrition Assess - Dietary Evaluation Nutrition/Malnutrition Findings: Nutrition Notes Start: 08/12/21 12:00 Freq: Status: Active Protocol: Document 08/12/21 12:00 JAMILA (Rec: 08/12/21 12:31 JAMILA [id number]) Nutrition Notes 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 Current Diet Cardiac/Consistent Carbohydrates Diet (since B ). Labs/Tests 08/12: Na 129, Cl 94.2, CO2 18 , BUN 63, Crea 3.7, Glu 209, Ca 7.7. Pertinent Medications 08/12: Insulin, others nutritionally unremarkable. 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 Weight Status Morbidly Obese Subjective/Other Information RD consult for skin risk assessment and Nutrition Education. No reports available on Pt's PO intake at the time. Pt states having Poor Appetite at the time, according to Progress notes. Pt presents a generalized Rash with unclear etiology; Pt presented with PCP and received steroids treatment " ...but did not work, and now is getting worse," according to Progress notes, Pt still on critical condition , not a candidate for Nutrition Education at the time, will assess feasibility on F/U. Percent of energy/protein needs met: Prescribed Cardiac/Consistent Carbohydrates Diet provides for energy/protein needs (1, 977 Kcal/86 g) during LOS. Burn Absent Trauma Absent GI Symptoms None Food Allergy No Skin Integrity/Comment Generalized Rash. Minimum of two criteria No #1 Nutrition Diagnosis Predicted suboptimal energy intake Comments: Will assess PO intake of meals at F/U. Etiology Uncertain As Evidenced by Signs and Symptoms Pt states having poor appetite . Is patient on ventilator? No Is Patient Ambulatory and/or Out of Bed Yes REE-([facility]-ambulatory/OOB) [ 2200.224 [id number]] Kcal/Kg value to use for calculation 12 Approximate Energy Requirements Using 1437 kcal/Kg Calculation Used for Recommendations Kcal/kg Additional Notes Protein: 1-1.2 g/Kg AdjBW; 88- 106 g/day. Fluids: 1 ml/Kcal, or as per MD. Nutrition Intervention Change Diet Order: Continue Cardiac/Consistent Carbohydrates Diet. Add Supplement/Snack (indicate name/kcal 8 fl oz nepro w/CARBSTEADY; /protein ) Once a Day, Provides kCal: 425 Provides Protein (gm) 19 Goal #1 Compensate, through dietary supplementation, for possible poor or insufficient PO intake of meals during LOS. Goal #2 Maintain body weight within +/ -3% of admission body weight during LOS. Follow-Up By: 08/19/21 Additional Comments Nutrition education will be provided on F/U, if feasible. Continue monitoring food tolerance, %PO intake of meals , and BM.
--- NOTE | 2021-08-13 13:15 | Progress Note ---
Assessment and Plan Cultures: 08/11/2021 blood culture: No growth 08/11/2021 COVID-19 PCR: Negative A/P: 70-year-old female with hypertension, CKD, diabetes, gout recently developed a generalized rash for which she saw her PCP and was given a Benadryl injection and a steroid cream. This started to get worse, also started feeling weak: #Neutrophilic leukocytosis: ?Reactive. Doubt infectious etiology #Acute renal failure: nephrology following. #Diffuse erythematous maculopapular rash: No oral involvement. Suspected drug reaction. No new medication use per patient. Could be from existing drugs. #Gout #Hypertension Recs: -Follow-up autoimmune work-up: FORTINO, ANCA, C3, C4 -f/u HIV -low suspicion for acute bacterial infection. Antibiotics discontinued -Started on steroids per IMS -If diagnostic work-up is unrevealing, may need a skin biopsy, possibly might need renal biopsy if renal function does not improve Leslie Duncan MD, FACP, [facility] ([facility]) O: [phone] F: [phone] C: [phone] Subjective Date of service: 08/13/21 Interval history: No fever. Was started on steroids. Rash persists, no worsening. Reports some breathing difficulty and wheezing today. She didn't sleep well last night. Objective - Exam Narrative Exam: Physical Exam: Constitutional: Alert, cooperative. No acute distress Head, Ears, Nose: Normocephalic, atraumatic. External ears, nose normal Eyes: Conjunctivae/corneas clear. No icterus. No ptosis. Neck: Supple, no meningeal signs Oral: no sores, no thrush Cardiovascular: S1, S2 + Respiratory: few wheezes + GI: Soft, non-tender; bowel sounds normal. No peritoneal signs Musculoskeletal: No pedal edema, no cyanosis. Skin: diffuse patchy erythematous maculopapular rash Hem/Lymphatic: No palpable cervical or supraclavicular nodes. No lymphangitis Psych: Mood ok. Affect normal Neurological: Awake, alert, oriented. No gross abnormality - Constitutional Vitals: Vital Signs Temp Pulse Resp BP Pulse Ox 98.5 F 106 H 18 174/75 96 08/13/21 11:48 08/13/21 11:48 08/13/21 11:48 08/13/21 11:48 08/13/21 11:48 Temperature -Last 24 Hours Temperature 98.5 F Temperature 98.5 F Temperature 98.0 F Temperature 97.8 F - Labs CBC & Chem 7: 08/13/21 05:02 08/13/21 05:02 Labs: Abnormal lab results 08/12/21 08/12/21 08/12/21 Range/Units 15:47 15:47 16:39 WBC (4.5-11.0) K/mm3 RBC (3.65-5.03) M/mm3 Sodium (137-145) mmol/L Carbon Dioxide (22-30) mmol/L BUN (7-17) mg/dL Creatinine (0.6-1.2) mg/dL Glucose (65-100) mg/dL POC Glucose 199 H (70-105) mg/dL U Epithel Cells (Auto) 14.0 H (0-13.0) /HPF Urine Creatinine 100.5 H (0.1-20.0) mg/dL Urine Total Protein 19 H (5-11.8) mg/dL 08/12/21 08/13/21 08/13/21 Range/Units 21:32 05:02 05:02 WBC 33.1 H (4.5-11.0) K/mm3 RBC 3.52 L (3.65-5.03) M/mm3 Sodium 131 L (137-145) mmol/L Carbon Dioxide 18 L (22-30) mmol/L BUN 66 H (7-17) mg/dL Creatinine 2.2 H (0.6-1.2) mg/dL Glucose 179 H (65-100) mg/dL POC Glucose 203 H (70-105) mg/dL U Epithel Cells (Auto) (0-13.0) /HPF Urine Creatinine (0.1-20.0) mg/dL Urine Total Protein (5-11.8) mg/dL 08/13/21 08/13/21 Range/Units 07:24 11:55 WBC (4.5-11.0) K/mm3 RBC (3.65-5.03) M/mm3 Sodium (137-145) mmol/L Carbon Dioxide (22-30) mmol/L BUN (7-17) mg/dL Creatinine (0.6-1.2) mg/dL Glucose (65-100) mg/dL POC Glucose 185 H 222 H (70-105) mg/dL U Epithel Cells (Auto) (0-13.0) /HPF Urine Creatinine (0.1-20.0) mg/dL Urine Total Protein (5-11.8) mg/dL
--- NOTE | 2021-08-13 14:42 | Progress Note ---
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 --SCr 1.06mg/dL in Apr 2021 * Diffuse rash - r/o drug rash * Hyponatremia * Leuocytosis * COVID 19 PUI * Hypertension * Type II DM Plan: * Creatinine improves 3.8->2.5 * Sodium stable at 131 * Continue IVF * Obtain serologic work up: hep panel WNL * Reviewed urine studies- no protein, note blood * Reviewed renal ultrasound- WNL * Note addition of prednisone * Patient advised to avoid future use of NSAIDs (takes Stanback powder daily) * Dose medications for renal function * No indication for biopsy or renal replacement therapy Subjective Date of service: 08/13/21 Interval history: Continues to feel generally weak, no acute issues though. Rash remains throughout Objective - Exam Narrative Exam: General appearance: well-developed, well-nourished EENT: ATNC Neck: Present: neck supple Respiratory: Clear to Ascultation Heart: regular, S1S2 Gastrointestinal: Present: normal. Absent: tenderness, distended Integumentary: rash (diffuse, erythematous, macular rash to chest, trunk, back, upper and lower extremities.), warm and dry Neurologic: alert and oriented x3 - Vital Signs Vital signs: Vital Signs - 12hr 08/13/21 08/13/21 08/13/21 04:30 09:46 11:48 Temperature 98.5 F 98.5 F Pulse Rate 91 H 106 H Respiratory 20 18 Rate Blood Pressure 138/53 174/75 O2 Sat by Pulse 94 98 96 Oximetry - Lab 08/13/21 05:02 08/13/21 05:02 Most recent lab results Calcium 8.4 mg/dL (8.4-10.2) 08/13/21 05:02 Urine Creatinine 100.5 mg/dL (0.1-20.0) H 08/12/21 15:47 Urine Sodium 12 mmol/L 08/12/21 15:47 Urine Total Protein 19 mg/dL (5-11.8) H 08/12/21 15:47 Medications & Allergies - Medications Allergies/Adverse Reactions: Allergies No Known Allergies Allergy (Verified 08/11/21 18:17) Home Medications: Home Medications Medication Instructions Recorded Confirmed Last Taken Type Metformin HCl 500 mg PO BID 03/26/13 08/12/21 08/11/21 History Cholecalciferol (Vitamin D3) 3,000 unit PO DAILY 01/13/20 08/12/21 08/11/21 History [Vitamin D3 3,000 unit] Doxazosin [Cardura] 4 mg PO BID 01/13/20 08/12/21 08/11/21 History Ferrous Sulfate [Feosol] 325 mg PO QDAY 01/13/20 08/12/21 08/11/21 History Furosemide [Lasix TAB] 40 mg PO QDAY 01/13/20 08/12/21 08/11/21 History Multivit-Min36/Iron/Folic Acid 1 each PO DAILY 01/13/20 08/12/21 08/10/21 History [Geritol Complete Tablet] Prednisone [predniSONE (Janell) ER 5 mg PO QDAY 01/13/20 08/12/21 08/10/21 History TAB] Simvastatin 10 mg PO QHS 01/13/20 08/12/21 08/10/21 History Vitamin E Mixed [Vitamin E] 1,000 unit PO DAILY 01/13/20 08/12/21 08/11/21 History allopurinoL [Zyloprim] 300 mg PO QDAY 01/13/20 08/12/21 08/11/21 History Gabapentin 300 mg PO BID 08/12/21 08/12/21 08/11/21 History Labetalol HCl [Labetalol 300mg TAB] 300 mg PO BID 08/12/21 08/12/21 08/11/21 History Losartan-Hctz 100-25 mg Tab 1 tab PO QDAY 08/12/21 08/12/21 08/11/21 History Montelukast [Singulair] 10 mg PO QDAY 08/12/21 08/12/21 08/11/21 History glipiZIDE 10 mg QAM 08/12/21 08/12/21 08/11/21 History Active Medications: Generic Name Dose Route Start Last Admin Trade Name Freq PRN Reason Stop Dose Admin Acetaminophen 650 mg 08/11/21 23:37 08/12/21 17:35 Acetaminophen 325 Mg Tab PO 650 mg Q4H PRN Administration Pain MILD(1-3)/Fever >100.5/BLISS Clobetasol Propionate 1 applic 08/13/21 13:00 Clobetasol 0.05% Cream 15 Gm TP BID DEVIKA Dextrose 0 ml 08/11/21 23:51 Dextrose 10% *Hypoglycemia IV PRN PRN Hypoglycemia Diphenhydramine HCl 25 mg 08/13/21 10:28 Diphenhydramine 25 Mg Cap PO Q6H PRN Itching Heparin Sodium (Porcine) 5,000 unit 08/12/21 06:00 08/13/21 05:42 Heparin 5,000 Unit/1 Ml Vial SUB-Q 5,000 unit Q8HR DEVIKA Administration Insulin Human Lispro 0 unit 08/12/21 07:30 08/13/21 12:27 Insulin Lispro 100 Unit/Ml SUB-Q 3 unit ACHS DEVIKA Administration Protocol Magnesium Hydroxide 30 ml 08/11/21 23:37 Magnesium Hydroxide (Mom) Oral Liqd Udc PO Q4H PRN Constipation Morphine Sulfate 2 mg 08/11/21 23:37 Morphine 2 Mg/1 Ml Inj IV Q4H PRN Pain, Moderate (4-6) Morphine Sulfate 4 mg 08/11/21 23:37 08/13/21 03:25 Morphine 4 Mg/1 Ml Inj IV 4 mg Q4H PRN Administration Pain , Severe (7-10) Ondansetron HCl 4 mg 08/11/21 23:37 Ondansetron 4 Mg/2 Ml Inj IV Q8H PRN Nausea And Vomiting Prednisone 60 mg 08/12/21 14:00 08/13/21 09:03 Prednisone 20 Mg Tab PO 60 mg QDAY DEVIKA Administration Sodium Chloride 10 ml 08/12/21 10:00 08/13/21 09:03 Sodium Chloride 0.9% 10 Ml Flush Syringe IV 10 ml BID DEVIKA Administration Sodium Chloride 10 ml 08/11/21 23:37 Sodium Chloride 0.9% 10 Ml Flush Syringe IV PRN PRN LINE FLUSH
[2021-08-13] MEDS: CLOBETASOL 0.05% CREAM 15 GM TP SCH ×2 (14:55→23:09)
--- NOTE | 2021-08-13 15:40 | Ultrasound Report ---
ULTRASOUND RENAL INDICATION / CLINICAL INFORMATION: NUNO. COMPARISON: None available. FINDINGS: RIGHT KIDNEY: Length = 9.8 cm. - Echogenicity: Normal. - Parenchymal Thickness: Normal. - Hydronephrosis: None. - Cyst / Mass: None. - Stones: None seen. LEFT KIDNEY: Length = 9.6 cm. - Echogenicity: Normal. - Parenchymal Thickness: Normal. - Hydronephrosis: None. - Cyst / Mass: None. - Stones: None seen. URINARY BLADDER: Collapsed. No significant abnormality identified. FREE FLUID: None. ADDITIONAL FINDINGS: None. IMPRESSION: 1. No significant sonographic abnormality. Scribed by: Amita Waddell RDMS, SHABNAM, AHYES Scribed: 08/13/2021 1:40 PM I have reviewed the images, agree with this report, and edited this report as needed. Signer Name: Alfredo Enciso MD Signed: 08/13/2021 3:36 PM Workstation Name: [id number]
--- NOTE | 2021-08-13 19:09 | Electrocardiograph Report ---
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
[2021-08-13] MEDS: ACETAMINOPHEN 325 MG TAB PO PRN (22:55)
[2021-08-14] MEDS: HEPARIN 5,000 UNIT/1 ML VIAL SUB-Q SCH ×3 (05:00→22:25)
[2021-08-14] MEDS: INSULIN LISPRO 100 UNIT/ML SUB-Q SCH ×4 (08:05→23:24)
[2021-08-14 08:46] LABS: Hematocrit 33.2 % (30.3-42.9); Hemoglobin 10.9 gm/dl (10.1-14.3); Mean Corpuscular HGB Conc 33 % (30-34); Mean Corpuscular Volume 87 fl (79-97); Platelet Count 293 K/mm3 (140-440); Red Blood Count 3.81 M/mm3 (3.65-5.03); Red Cell Distribution Width 14.7 % (13.2-15.2)
[2021-08-14 09:07] LABS: Calcium 8.9 mg/dL (8.4-10.2)
[2021-08-14] MEDS: DOXAZOSIN 4 MG TAB PO SCH ×2 (09:17→23:20)
[2021-08-14] MEDS: FERROUS SULFATE 325 MG TAB PO SCH (09:17)
[2021-08-14] MEDS: GABAPENTIN 300 MG CAP PO SCH ×2 (09:17→23:20)
[2021-08-14] MEDS: FUROSEMIDE 40 MG TAB PO SCH (09:18)
[2021-08-14] MEDS: MONTELUKAST 10 MG TAB PO SCH (09:18)
[2021-08-14] MEDS: predniSONE 20 MG TAB PO SCH (09:18)
[2021-08-14] MEDS: CLOBETASOL 0.05% CREAM 15 GM TP SCH ×2 (09:22→23:28)
--- NOTE | 2021-08-14 09:42 | Progress Note ---
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 --SCr 1.06mg/dL in Apr 2021 * Diffuse rash - r/o drug rash * Hyponatremia * Leukocytosis * COVID 19 PUI * Hypertension * Type II DM Plan: * Creatinine improving 3.8->2.5->1.4 * Sodium improved 131->135 * Continue IVF as tolerated * Obtain serologic work up: hep panel WNL, remainder pending (may be related to rash?) * Reviewed urine studies- no protein, note blood- serologies as above * Reviewed renal ultrasound- WNL * Note addition of prednisone * Patient advised to avoid future use of NSAIDs (takes Stanback powder daily) * Dose medications for renal function * No indication for biopsy or renal replacement therapy- can consider kidney biopsy if creatinine not normalizing or if serologies abnormal, but otherwise may benefit from skin biopsy Subjective Date of service: 08/14/21 Interval history: Continues to feel generally weak, no acute issues though. Rash remains throughout, also with wheezing. Did not sleep well as a result Objective - Exam Narrative Exam: General appearance: well-developed, well-nourished EENT: ATNC Neck: Present: neck supple Respiratory: Clear to Ascultation Heart: regular, S1S2 Gastrointestinal: Present: normal. Absent: tenderness, distended Integumentary: rash (diffuse, erythematous, macular rash to chest, trunk, back, upper and lower extremities.), warm and dry Neurologic: alert and oriented x3 - Vital Signs Vital signs: Vital Signs - 12hr 08/13/21 08/14/21 08/14/21 21:48 04:33 07:02 Temperature 98.5 F 98.4 F Pulse Rate 93 H 98 H Respiratory 16 20 Rate Blood Pressure 159/75 161/77 O2 Sat by Pulse 99 100 96 Oximetry 08/14/21 07:49 Temperature 98.2 F Pulse Rate 150 H Respiratory 24 Rate Blood Pressure 181/84 O2 Sat by Pulse 99 Oximetry - Lab 08/14/21 08:17 08/14/21 08:17 Most recent lab results Calcium 8.9 mg/dL (8.4-10.2) 08/14/21 08:17 Urine Creatinine 100.5 mg/dL (0.1-20.0) H 08/12/21 15:47 Urine Sodium 12 mmol/L 08/12/21 15:47 Urine Total Protein 19 mg/dL (5-11.8) H 08/12/21 15:47 Medications & Allergies - Medications Allergies/Adverse Reactions: Allergies No Known Allergies Allergy (Verified 08/11/21 18:17) Home Medications: Home Medications Medication Instructions Recorded Confirmed Last Taken Type Metformin HCl 500 mg PO BID 03/26/13 08/12/21 08/11/21 History Cholecalciferol (Vitamin D3) 3,000 unit PO DAILY 01/13/20 08/12/21 08/11/21 History [Vitamin D3 3,000 unit] Doxazosin [Cardura] 4 mg PO BID 01/13/20 08/12/21 08/11/21 History Ferrous Sulfate [Feosol] 325 mg PO QDAY 01/13/20 08/12/21 08/11/21 History Furosemide [Lasix TAB] 40 mg PO QDAY 01/13/20 08/12/21 08/11/21 History Multivit-Min36/Iron/Folic Acid 1 each PO DAILY 01/13/20 08/12/21 08/10/21 History [Geritol Complete Tablet] Prednisone [predniSONE (Janell) ER 5 mg PO QDAY 01/13/20 08/12/21 08/10/21 History TAB] Simvastatin 10 mg PO QHS 01/13/20 08/12/21 08/10/21 History Vitamin E Mixed [Vitamin E] 1,000 unit PO DAILY 01/13/20 08/12/21 08/11/21 History allopurinoL [Zyloprim] 300 mg PO QDAY 01/13/20 08/12/21 08/11/21 History Gabapentin 300 mg PO BID 08/12/21 08/12/21 08/11/21 History Labetalol HCl [Labetalol 300mg TAB] 300 mg PO BID 08/12/21 08/12/21 08/11/21 History Losartan-Hctz 100-25 mg Tab 1 tab PO QDAY 08/12/21 08/12/21 08/11/21 History Montelukast [Singulair] 10 mg PO QDAY 08/12/21 08/12/21 08/11/21 History glipiZIDE 10 mg QAM 08/12/21 08/12/21 08/11/21 History Active Medications: Generic Name Dose Route Start Last Admin Trade Name Freq PRN Reason Stop Dose Admin Acetaminophen 650 mg 08/11/21 23:37 08/13/21 22:55 Acetaminophen 325 Mg Tab PO 650 mg Q4H PRN Administration Pain MILD(1-3)/Fever >100.5/BLISS Allopurinol 300 mg 08/14/21 10:00 Allopurinol 300 Mg Tab PO QDAY DEVIKA Clobetasol Propionate 1 applic 08/13/21 13:00 08/14/21 09:22 Clobetasol 0.05% Cream 15 Gm TP 1 applic BID DEVIKA Administration Dextrose 0 ml 08/11/21 23:51 Dextrose 10% *Hypoglycemia IV PRN PRN Hypoglycemia Diphenhydramine HCl 25 mg 08/13/21 10:28 08/14/21 03:40 Diphenhydramine 25 Mg Cap PO 25 mg Q6H PRN Administration Itching Doxazosin Mesylate 4 mg 08/14/21 10:00 08/14/21 09:17 Doxazosin 4 Mg Tab PO 4 mg BID DEVIKA Administration Ferrous Sulfate 325 mg 08/14/21 10:00 08/14/21 09:17 Ferrous Sulfate 325 Mg Tab PO 325 mg QDAY DEVIKA Administration Furosemide 40 mg 08/14/21 10:00 08/14/21 09:18 Furosemide 40 Mg Tab PO 40 mg QDAY DEVIKA Administration Gabapentin 300 mg 08/14/21 10:00 08/14/21 09:17 Gabapentin 300 Mg Cap PO 300 mg BID DEVIKA Administration Heparin Sodium (Porcine) 5,000 unit 08/12/21 06:00 08/14/21 05:00 Heparin 5,000 Unit/1 Ml Vial SUB-Q 5,000 unit Q8HR DEVIKA Administration Insulin Human Lispro 0 unit 08/12/21 07:30 08/14/21 08:05 Insulin Lispro 100 Unit/Ml SUB-Q Not Given ACHS [facility] Protocol Labetalol HCl 300 mg 08/14/21 09:00 08/14/21 08:24 Labetalol 100 Mg Tab PO 300 mg BID DEVIKA Administration Magnesium Hydroxide 30 ml 08/11/21 23:37 Magnesium Hydroxide (Mom) Oral Liqd Udc PO Q4H PRN Constipation Montelukast Sodium 10 mg 08/14/21 10:00 08/14/21 09:18 Montelukast 10 Mg Tab PO 10 mg QDAY DEVIKA Administration Morphine Sulfate 2 mg 08/11/21 23:37 Morphine 2 Mg/1 Ml Inj IV Q4H PRN Pain, Moderate (4-6) Morphine Sulfate 4 mg 08/11/21 23:37 08/13/21 03:25 Morphine 4 Mg/1 Ml Inj IV 4 mg Q4H PRN Administration Pain , Severe (7-10) Ondansetron HCl 4 mg 08/11/21 23:37 Ondansetron 4 Mg/2 Ml Inj IV Q8H PRN Nausea And Vomiting Prednisone 60 mg 08/12/21 14:00 08/14/21 09:18 Prednisone 20 Mg Tab PO 60 mg QDAY DEVIKA Administration Sodium Chloride 10 ml 08/12/21 10:00 08/14/21 09:18 Sodium Chloride 0.9% 10 Ml Flush Syringe IV 10 ml BID DEVIKA Administration Sodium Chloride 10 ml 08/11/21 23:37 Sodium Chloride 0.9% 10 Ml Flush Syringe IV PRN PRN LINE FLUSH
[2021-08-14] MEDS ORDERED: NON-FORMULARY EACH (Labetalol Hcl [Labetalol 300mg Tab] 300 MG Tablet) PO SCH (10:00)
[2021-08-14] MEDS: allopurinoL 300 MG TAB PO SCH (10:12)
--- NOTE | 2021-08-14 11:02 | Progress Note ---
Assessment and Plan Assessment and plan: #Sepsis with shock-improving -BP improved -tachycardia improving, continued neutrophilic leukocytosis -leukocytosis worsening likely reactive to steroids -Continue cefep -Blood cultures collected; etiology unknown at this time, likely secondary to diffuse rash -Continue IV fluids -Infectious disease consulted, assistance appreciated #Maculopapular rash, generalized -lesions are now forming bullae and sloughing in some places -Etiology is unclear. Given distribution and appearance, concerning for vasculitis vs bullous pemphigoid vs urticarial rash -s/p Solu-Medrol in ED, continue 60 mg prednisone daily -may need skin biopsy; FORTINO, complement levels ordered -Patient will require Dermatology evaluation at discharge, no Dermatology coverage in house -PRN benadryl for itching #Acute kidney injury superimposed on CKD -Cr improved to 2.2 -will continue IVFs -patient reports hx of CKD with creatinine of ~3 -avoid nephrotoxins, renally dose medications -Nephrology consulted, assistance appreciated #Atrial fibrillation with RVR #Type II Diabetes mellitus -controlled, will continue SSI + accuchecks #Hypertension -hypotension resolved -will restart home BP medications based on BP trend while inpatient #Advanced care planning -Disease education conducted, care plan discussed, diagnoses discussed, prognosis discussed, and patient acknowledges understanding with care plan -Time: +30 min History Interval history: No acute events overnight. Patient describes rash as burning and pruritic. Benadryl helps with itching when given. No complaints at this time. Hospitalist Physical - Constitutional Vitals: Temp Pulse Resp BP Pulse Ox 98.2 F 150 H 24 181/84 99 08/14/21 07:49 08/14/21 07:49 08/14/21 07:49 08/14/21 07:49 08/14/21 07:49 General appearance: Present: no acute distress, well-nourished, obese HEART Score - HEART Score Troponin: Troponin T < 0.010 ng/mL (0.00-0.029) 08/11/21 20:07 Results - Labs CBC & Chem 7: 08/14/21 08:17 08/14/21 08:17 Labs: Laboratory Last Values WBC 29.8 K/mm3 (4.5-11.0) H 08/14/21 08:17 RBC 3.81 M/mm3 (3.65-5.03) 08/14/21 08:17 Hgb 10.9 gm/dl (10.1-14.3) 08/14/21 08:17 Hct 33.2 % (30.3-42.9) 08/14/21 08:17 MCV 87 fl (79-97) 08/14/21 08:17 MCH 29 pg (28-32) 08/14/21 08:17 MCHC 33 % (30-34) 08/14/21 08:17 RDW 14.7 % (13.2-15.2) 08/14/21 08:17 Plt Count 293 K/mm3 (140-440) 08/14/21 08:17 Add Manual Diff Complete 08/12/21 05:48 Total Counted 100 08/12/21 05:48 Seg Neutrophils % Switch Cleaner 08/12/21 05:48 Seg Neuts % (Manual) 94.0 % (40.0-70.0) H 08/12/21 05:48 Band Neutrophils % 3.0 % 08/12/21 05:48 Lymphocytes % (Manual) 3.0 % (13.4-35.0) L 08/12/21 05:48 Reactive Lymphs % (Man) 0 % 08/12/21 05:48 Monocytes % (Manual) 0 % (0.0-7.3) 08/12/21 05:48 Eosinophils % (Manual) 0 % (0.0-4.3) 08/12/21 05:48 Basophils % (Manual) 0 % (0.0-1.8) 08/12/21 05:48 Metamyelocytes % 0 % 08/12/21 05:48 Myelocytes % 0 % 08/12/21 05:48 Promyelocytes % 0 % 08/12/21 05:48 Blast Cells % 0 % 08/12/21 05:48 Nucleated RBC % Not Reportable 08/12/21 05:48 Seg Neutrophils # Man 25.9 K/mm3 (1.8-7.7) H 08/12/21 05:48 Band Neutrophils # 0.8 K/mm3 08/12/21 05:48 Lymphocytes # (Manual) 0.8 K/mm3 (1.2-5.4) L 08/12/21 05:48 Abs React Lymphs (Man) 0.0 K/mm3 08/12/21 05:48 Monocytes # (Manual) 0.0 K/mm3 (0.0-0.8) 08/12/21 05:48 Eosinophils # (Manual) 0.0 K/mm3 (0.0-0.4) 08/12/21 05:48 Basophils # (Manual) 0.0 K/mm3 (0.0-0.1) 08/12/21 05:48 Metamyelocytes # 0.0 K/mm3 08/12/21 05:48 Myelocytes # 0.0 K/mm3 08/12/21 05:48 Promyelocytes # 0.0 K/mm3 08/12/21 05:48 Blast Cells # 0.0 K/mm3 08/12/21 05:48 WBC Morphology Not Reportable 08/12/21 05:48 Hypersegmented Neuts Not Reportable 08/12/21 05:48 Hyposegmented Neuts Not Reportable 08/12/21 05:48 Hypogranular Neuts Not Reportable 08/12/21 05:48 Smudge Cells Not Reportable 08/12/21 05:48 Toxic Granulation 1+ 08/12/21 05:48 Toxic Vacuolation Not Reportable 08/12/21 05:48 Dohle Bodies Not Reportable 08/12/21 05:48 Pelger-Huet Anomaly Not Reportable 08/12/21 05:48 Leonardo Rods Not Reportable 08/12/21 05:48 Platelet Estimate Consistent w auto 08/12/21 05:48 Clumped Platelets Not Reportable 08/12/21 05:48 Plt Clumps, EDTA Not Reportable 08/12/21 05:48 Large Platelets Not Reportable 08/12/21 05:48 Giant Platelets Not Reportable 08/12/21 05:48 Platelet Satelliting Not Reportable 08/12/21 05:48 Plt Morphology Comment Not Reportable 08/12/21 05:48 RBC Morphology Not Reportable 08/12/21 05:48 Dimorphic RBCs Not Reportable 08/12/21 05:48 Polychromasia Not Reportable 08/12/21 05:48 Hypochromasia Not Reportable 08/12/21 05:48 Poikilocytosis Not Reportable 08/12/21 05:48 Anisocytosis 1+ 08/12/21 05:48 Microcytosis Not Reportable 08/12/21 05:48 Macrocytosis Not Reportable 08/12/21 05:48 Spherocytes Not Reportable 08/12/21 05:48 Pappenheimer Bodies Not Reportable 08/12/21 05:48 Sickle Cells Not Reportable 08/12/21 05:48 Target Cells Not Reportable 08/12/21 05:48 Tear Drop Cells Not Reportable 08/12/21 05:48 Ovalocytes Not Reportable 08/12/21 05:48 Helmet Cells Not Reportable 08/12/21 05:48 Sow-Hawkeye Bodies Not Reportable 08/12/21 05:48 [place] Rings Not Reportable 08/12/21 05:48 Jerilyn Cells Not Reportable 08/12/21 05:48 Bite Cells Not Reportable 08/12/21 05:48 Crenated Cell Not Reportable 08/12/21 05:48 Elliptocytes Not Reportable 08/12/21 05:48 Acanthocytes (Spur) Not Reportable 08/12/21 05:48 Rouleaux Not Reportable 08/12/21 05:48 Hemoglobin C Crystals Not Reportable 08/12/21 05:48 Schistocytes Not Reportable 08/12/21 05:48 Malaria parasites Not Reportable 08/12/21 05:48 Christopher Bodies Not Reportable 08/12/21 05:48 Hem Pathologist Commnt No 08/12/21 05:48 Sodium 135 mmol/L (137-145) L 08/14/21 08:17 Potassium 4.4 mmol/L (3.6-5.0) 08/14/21 08:17 Chloride 100.2 mmol/L (98-107) 08/14/21 08:17 Carbon Dioxide 20 mmol/L (22-30) L 08/14/21 08:17 Anion Gap 19 mmol/L 08/14/21 08:17 BUN 54 mg/dL (7-17) H 08/14/21 08:17 Creatinine 1.4 mg/dL (0.6-1.2) H 08/14/21 08:17 Estimated GFR 45 ml/min 08/14/21 08:17 BUN/Creatinine Ratio 39 % 08/14/21 08:17 Glucose 134 mg/dL (65-100) H 08/14/21 08:17 POC Glucose 138 mg/dL (70-105) H 08/14/21 08:00 Lactic Acid 1.70 mmol/L (0.7-2.0) 08/11/21 23:43 Calcium 8.9 mg/dL (8.4-10.2) 08/14/21 08:17 Total Bilirubin 0.60 mg/dL (0.1-1.2) 08/11/21 20:07 AST 22 units/L (5-40) 08/11/21 20:07 ALT 15 units/L (7-56) 08/11/21 20:07 Alkaline Phosphatase 74 units/L (35-129) 08/11/21 20:07 Troponin T < 0.010 ng/mL (0.00-0.029) 08/11/21 20:07 Total Protein 5.3 g/dL (6.3-8.2) L 08/11/21 20:07 Albumin 3.3 g/dL (3.9-5) L 08/11/21 20:07 Albumin/Globulin Ratio 1.7 % 08/11/21 20:07 TSH 3.020 mlU/mL (0.270-4.200) 08/11/21 20:07 Free T4 1.08 ng/dL (0.76-1.46) 08/11/21 20:07 Urine Color Yellow (Yellow) 08/12/21 15:47 Urine Turbidity Slightly-cloudy (Clear) 08/12/21 15:47 Urine pH 5.0 (5.0-7.0) 08/12/21 15:47 Ur Specific [place] 1.009 (1.003-1.030) 08/12/21 15:47 Urine Protein <15 mg/dl mg/dL (Negative) 08/12/21 15:47 Urine Glucose (UA) Neg mg/dL (Negative) 08/12/21 15:47 Urine Ketones Neg mg/dL (Negative) 08/12/21 15:47 Urine Blood Mod (Negative) 08/12/21 15:47 Urine Nitrite Neg (Negative) 08/12/21 15:47 Urine Bilirubin Neg (Negative) 08/12/21 15:47 Urine Urobilinogen < 2.0 mg/dL (<2.0) 08/12/21 15:47 Ur Leukocyte Esterase Neg (Negative) 08/12/21 15:47 Urine WBC (Auto) 6.0 /HPF (0.0-6.0) 08/12/21 15:47 Urine RBC (Auto) 3.0 /HPF (0.0-6.0) 08/12/21 15:47 U Epithel Cells (Auto) 14.0 /HPF (0-13.0) H 08/12/21 15:47 Urine Bacteria (Auto) 2+ /HPF (Negative) 08/12/21 15:47 Urine Mucus Few /HPF 08/12/21 15:47 Urine Creatinine 100.5 mg/dL (0.1-20.0) H 08/12/21 15:47 Protein/Creatinin Ratio 0.19 08/12/21 15:47 Urine Sodium 12 mmol/L 08/12/21 15:47 Urine Total Protein 19 mg/dL (5-11.8) H 08/12/21 15:47 Random Vancomycin 10.3 ug/mL (0-40.0) 08/13/21 05:02 Coronavirus (PCR) Negative (Negative) 08/11/21 08:01 Hepatitis A IgM Ab Non-reactive (NonReactive) 08/13/21 05:02 Hep Bs Antigen Non-reactive (Negative) 08/13/21 05:02 Hep B Core IgM Ab Non-reactive (NonReactive) 08/13/21 05:02 Hepatitis C Antibody Non-reactive (NonReactive) 08/13/21 05:02 Microbiology: Microbiology 08/11/21 20:07 Peripheral/Venous Blood Culture - Preliminary NO GROWTH AFTER 48 HOURS 08/11/21 20:07 Peripheral/Venous Blood Culture - Preliminary NO GROWTH AFTER 48 HOURS Powell/IV: Voiding Method Toilet Active Medications - Current Medications Current Medications: Generic Name Dose Route Start Last Admin Trade Name Freq PRN Reason Stop Dose Admin Acetaminophen 650 mg 08/11/21 23:37 08/13/21 22:55 Acetaminophen 325 Mg Tab PO 650 mg Q4H PRN Administration Pain MILD(1-3)/Fever >100.5/BLISS Albuterol 2.5 mg 08/14/21 12:00 Albuterol 2.5 Mg/3 Ml Nebu IH QIDRT DEVIKA Allopurinol 300 mg 08/14/21 10:00 08/14/21 10:12 Allopurinol 300 Mg Tab PO 300 mg QDAY DEVIKA Administration Clobetasol Propionate 1 applic 08/13/21 13:00 08/14/21 09:22 Clobetasol 0.05% Cream 15 Gm TP 1 applic BID DEVIKA Administration Dextrose 0 ml 08/11/21 23:51 Dextrose 10% *Hypoglycemia IV PRN PRN Hypoglycemia Diphenhydramine HCl 25 mg 08/13/21 10:28 08/14/21 03:40 Diphenhydramine 25 Mg Cap PO 25 mg Q6H PRN Administration Itching Doxazosin Mesylate 4 mg 08/14/21 10:00 08/14/21 09:17 Doxazosin 4 Mg Tab PO 4 mg BID DEVIKA Administration Ferrous Sulfate 325 mg 08/14/21 10:00 08/14/21 09:17 Ferrous Sulfate 325 Mg Tab PO 325 mg QDAY DEVIKA Administration Furosemide 40 mg 08/14/21 10:00 08/14/21 09:18 Furosemide 40 Mg Tab PO 40 mg QDAY DEVIKA Administration Gabapentin 300 mg 08/14/21 10:00 08/14/21 09:17 Gabapentin 300 Mg Cap PO 300 mg BID DEVIKA Administration Heparin Sodium (Porcine) 5,000 unit 08/12/21 06:00 08/14/21 05:00 Heparin 5,000 Unit/1 Ml Vial SUB-Q 5,000 unit Q8HR [facility] Administration Insulin Human Lispro 0 unit 08/12/21 07:30 08/14/21 08:05 Insulin Lispro 100 Unit/Ml SUB-Q Not Given ACHS [facility] Protocol Labetalol HCl 300 mg 08/14/21 09:00 08/14/21 08:24 Labetalol 100 Mg Tab PO 300 mg BID DEVIKA Administration Magnesium Hydroxide 30 ml 08/11/21 23:37 Magnesium Hydroxide (Mom) Oral Liqd Udc PO Q4H PRN Constipation Montelukast Sodium 10 mg 08/14/21 10:00 08/14/21 09:18 Montelukast 10 Mg Tab PO 10 mg QDAY DEVIKA Administration Morphine Sulfate 2 mg 08/11/21 23:37 Morphine 2 Mg/1 Ml Inj IV Q4H PRN Pain, Moderate (4-6) Morphine Sulfate 4 mg 08/11/21 23:37 08/13/21 03:25 Morphine 4 Mg/1 Ml Inj IV 4 mg Q4H PRN Administration Pain , Severe (7-10) Ondansetron HCl 4 mg 08/11/21 23:37 Ondansetron 4 Mg/2 Ml Inj IV Q8H PRN Nausea And Vomiting Prednisone 60 mg 08/12/21 14:00 08/14/21 09:18 Prednisone 20 Mg Tab PO 60 mg QDAY DEVIKA Administration Sodium Chloride 10 ml 08/12/21 10:00 08/14/21 09:18 Sodium Chloride 0.9% 10 Ml Flush Syringe IV 10 ml BID DEVIKA Administration Sodium Chloride 10 ml 08/11/21 23:37 Sodium Chloride 0.9% 10 Ml Flush Syringe IV PRN PRN LINE FLUSH Nutrition/Malnutrition Assess - Dietary Evaluation Nutrition/Malnutrition Findings: Nutrition Notes Start: 08/12/21 12:00 Freq: Status: Active Protocol: Document 08/12/21 12:00 JAMILA (Rec: 08/12/21 12:31 JAMILA [id number]) Nutrition Notes Need for Assessment generated from: chinese medicine practitioner Initial or Follow up Assessment Current Diagnosis CKD(stage I-IV),Diabetes, Sepsis,Hypertension Other Pertinent Diagnosis Pulmonary Infiltartion, Maculopapular Rash, Gout, ... Current Diet Cardiac/Consistent Carbohydrates Diet (since B ). Labs/Tests 08/12: Na 129, Cl 94.2, CO2 18 , BUN 63, Crea 3.7, Glu 209, Ca 7.7. Pertinent Medications 08/12: Insulin, others nutritionally unremarkable. 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 Weight Status Morbidly Obese Subjective/Other Information RD consult for skin risk assessment and Nutrition Education. No reports available on Pt's PO intake at the time. Pt states having Poor Appetite at the time, according to Progress notes. Pt presents a generalized Rash with unclear etiology; Pt presented with PCP and received steroids treatment " ...but did not work, and now is getting worse," according to Progress notes, Pt still on critical condition , not a candidate for Nutrition Education at the time, will assess feasibility on F/U. Percent of energy/protein needs met: Prescribed Cardiac/Consistent Carbohydrates Diet provides for energy/protein needs (1, 977 Kcal/86 g) during LOS. Burn Absent Trauma Absent GI Symptoms None Food Allergy No Skin Integrity/Comment Generalized Rash. Minimum of two criteria No #1 Nutrition Diagnosis Predicted suboptimal energy intake Comments: Will assess PO intake of meals at F/U. Etiology Uncertain As Evidenced by Signs and Symptoms Pt states having poor appetite . Is patient on ventilator? No Is Patient Ambulatory and/or Out of Bed Yes REE-(Bosque-St. Jeor-ambulatory/OOB) [ 2200.224 NUTR.MSJOOB] Kcal/Kg value to use for calculation 12 Approximate Energy Requirements Using 1437 kcal/Kg Calculation Used for Recommendations Kcal/kg Additional Notes Protein: 1-1.2 g/Kg AdjBW; 88- 106 g/day. Fluids: 1 ml/Kcal, or as per MD. Nutrition Intervention Change Diet Order: Continue Cardiac/Consistent Carbohydrates Diet. Add Supplement/Snack (indicate name/kcal 8 fl oz nepro w/CARBSTEADY; /protein ) Once a Day, Provides kCal: 425 Provides Protein (gm) 19 Goal #1 Compensate, through dietary supplementation, for possible poor or insufficient PO intake of meals during LOS. Goal #2 Maintain body weight within +/ -3% of admission body weight during LOS. Follow-Up By: 08/19/21 Additional Comments Nutrition education will be provided on F/U, if feasible. Continue monitoring food tolerance, %PO intake of meals , and BM.
--- NOTE | 2021-08-14 11:33 | Progress Note ---
Assessment and Plan Cultures: 08/11/2021 blood culture: No growth 08/11/2021 COVID-19 PCR: Negative A/P: 70-year-old female with hypertension, CKD, diabetes, gout recently developed a generalized rash for which she saw her PCP and was given a Benadryl injection and a steroid cream. This started to get worse, also started feeling weak: #Neutrophilic leukocytosis: ?Reactive. Doubt infectious etiology #Acute renal failure: nephrology following. Creatinine much improved. #Diffuse erythematous maculopapular rash: No oral involvement. Suspected drug reaction. No new medication use per patient. Could be from existing drugs. #Gout #Hypertension Recs: -Follow-up autoimmune work-up: FORTINO, ANCA, C3, C4 -f/u HIV -continue steroids and taper per IMS -advised to follow up with PCP and re-eval all her home meds for possible allergic reaction and discuss alternatives, especially allopurinol ID will sign off. Please reconsult if needed. Leslie Duncan MD, FACP, [facility] ([facility] O: [phone] F: [phone] C: [phone] Subjective Date of service: 08/14/21 Interval history: States she had a rough night, wasn't able to sleep. Rash is improving and scabbing. No fever. Objective - Exam Narrative Exam: Physical Exam: Constitutional: Alert, cooperative. No acute distress Head, Ears, Nose: Normocephalic, atraumatic. External ears, nose normal Eyes: Conjunctivae/corneas clear. No icterus. No ptosis. Neck: Supple, no meningeal signs Oral: no sores, no thrush Cardiovascular: S1, S2 + Respiratory: few wheezes + GI: Soft, non-tender; bowel sounds normal. No peritoneal signs Musculoskeletal: No pedal edema, no cyanosis. Skin: diffuse patchy erythematous maculopapular rash, improving with scabs Hem/Lymphatic: No palpable cervical or supraclavicular nodes. No lymphangitis Psych: Mood ok. Affect normal Neurological: Awake, alert, oriented. No gross abnormality - Constitutional Vitals: Vital Signs Temp Pulse Resp BP Pulse Ox 98.2 F 150 H 24 181/84 99 08/14/21 07:49 08/14/21 07:49 08/14/21 07:49 08/14/21 07:49 08/14/21 07:49 Temperature -Last 24 Hours Temperature 98.2 F Temperature 98.4 F Temperature 98.5 F Temperature 98.2 F Temperature 98.5 F - Labs CBC & Chem 7: 08/14/21 08:17 08/14/21 08:17 Labs: Abnormal lab results 08/13/21 08/13/21 08/13/21 Range/Units 11:55 16:32 21:56 WBC (4.5-11.0) K/mm3 Sodium (137-145) mmol/L Carbon Dioxide (22-30) mmol/L BUN (7-17) mg/dL Creatinine (0.6-1.2) mg/dL Glucose (65-100) mg/dL POC Glucose 222 H 238 H 242 H (70-105) mg/dL 08/14/21 08/14/21 08/14/21 Range/Units 08:00 08:17 08:17 WBC 29.8 H (4.5-11.0) K/mm3 Sodium 135 L (137-145) mmol/L Carbon Dioxide 20 L (22-30) mmol/L BUN 54 H (7-17) mg/dL Creatinine 1.4 H (0.6-1.2) mg/dL Glucose 134 H (65-100) mg/dL POC Glucose 138 H (70-105) mg/dL
[2021-08-14] MEDS: ALBUTEROL 2.5 MG/3 ML NEBU IH SCH ×3 (12:09→19:56)
[2021-08-15] MEDS: HEPARIN 5,000 UNIT/1 ML VIAL SUB-Q SCH (05:20)
[2021-08-15 05:55] VITALS: BP 145/68
[2021-08-15 06:46] LABS: Hematocrit 30.9 % (30.3-42.9); Hemoglobin 9.9 gm/dl (10.1-14.3); Mean Corpuscular HGB Conc 32 % (30-34); Mean Corpuscular Volume 88 fl (79-97); Platelet Count 283 K/mm3 (140-440); Red Blood Count 3.51 M/mm3 (3.65-5.03); Red Cell Distribution Width 14.7 % (13.2-15.2)
[2021-08-15 07:08] LABS: Calcium 8.8 mg/dL (8.4-10.2)
[2021-08-15] MEDS: ALBUTEROL 2.5 MG/3 ML NEBU IH SCH (08:08)
[2021-08-15] MEDS: INSULIN LISPRO 100 UNIT/ML SUB-Q SCH (08:20)
[2021-08-15] MEDS: FUROSEMIDE 40 MG TAB PO SCH (09:02)
[2021-08-15] MEDS: allopurinoL 300 MG TAB PO SCH (09:02)
[2021-08-15] MEDS: MONTELUKAST 10 MG TAB PO SCH (09:02)
[2021-08-15] MEDS: predniSONE 20 MG TAB PO SCH (09:02)
[2021-08-15] MEDS: GABAPENTIN 300 MG CAP PO SCH (09:02)
[2021-08-15] MEDS: DOXAZOSIN 4 MG TAB PO SCH (09:02)
[2021-08-15] MEDS: FERROUS SULFATE 325 MG TAB PO SCH (09:02)
[2021-08-15] MEDS: CLOBETASOL 0.05% CREAM 15 GM TP SCH (09:03)
--- NOTE | 2021-08-15 09:53 | Discharge Summary ---
Providers - Providers Date of Admission: 08/11/21 23:37 Date of discharge: 08/15/21 Attending physician: DARYL DE LA FUETNE MD 08/11/21 21:57 Consult to Physician [CONS] Urgent Comment: Consulting Provider: ELIAZAR DEUTSCH Physician Instructions: Reason For Exam: sepsis,puritic rash 08/11/21 22:08 Consult to Physician [CONS] Urgent Comment: Consulting Provider: PRASANNA FLANAGAN Physician Instructions: Reason For Exam: renal insufficiency 08/11/21 23:37 Consult to Dietitian/Nutrition [CONS] Routine Physician Instructions: Reason For Exam: Reason for Consult: Diet education 08/12/21 09:45 Physical Therapy Evaluation and Treat [CONS] Stat Comment: Reason For Exam: eval and treat 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 Bring your medications with you. Asked for referral to dermatology for your rash. Follow up with: PRIMARY MD JENNIFER [Primary Care Provider] - 7 Days Prescriptions: diphenhydrAMINE [Benadryl CAP] 25 mg PO Q6H PRN 10 Days #40 capsule PRN Reason: Itching Prednisone [predniSONE 10 mg (6-Day Pack, 21 Tabs)] 10 mg PO .TAPER 6 Days #1 pack Clobetasol 0.05% [Temovate] 1 applic TP BID 30 Days #2 tube
--- NOTE | 2021-08-15 15:35 | Progress Note ---
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 --SCr 1.06mg/dL in Apr 2021 * Diffuse rash - r/o drug rash * Hyponatremia * Leukocytosis * COVID 19 PUI * Hypertension * Type II DM Plan: * Creatinine improving 3.8->2.5->1.4->1.4 * Sodium improved 131->135->136 * Continue IVF as tolerated * Obtain serologic work up: hep panel WNL, remainder pending * Reviewed urine studies- no protein, note blood- serologies as above * Reviewed renal ultrasound- WNL * Note addition of prednisone * Patient advised to avoid future use of NSAIDs (takes [place] powder daily) * Dose medications for renal function * No indication for biopsy or renal replacement therapy- can consider kidney biopsy if creatinine not normalizing or if serologies abnormal, but otherwise may benefit from skin biopsy * Will ensure close CKD/NUNO follow up on discharge as outpatient Subjective Date of service: 08/15/21 Interval history: Notes feeling better, no acute issues noted Rash remains throughout, but wheezing improved Objective - Exam Narrative Exam: General appearance: well-developed, well-nourished EENT: ATNC Neck: Present: neck supple Respiratory: Clear to Ascultation Heart: regular, S1S2 Gastrointestinal: Present: normal. Absent: tenderness, distended Integumentary: rash (diffuse, erythematous, macular rash to chest, trunk, back, upper and lower extremities.), warm and dry Neurologic: alert and oriented x3 - Vital Signs Vital signs: Vital Signs - 12hr 08/15/21 08/15/21 08/15/21 05:26 07:02 08:00 Temperature 98.6 F Pulse Rate 87 Pulse Rate [ 90 Throughout] Respiratory 18 Rate Respiratory 16 Rate [ Throughout] Blood Pressure 145/68 O2 Sat by Pulse 99 98 Oximetry - Lab 08/15/21 06:04 08/15/21 06:04 Most recent lab results Calcium 8.8 mg/dL (8.4-10.2) 08/15/21 06:04 Urine Creatinine 100.5 mg/dL (0.1-20.0) H 08/12/21 15:47 Urine Sodium 12 mmol/L 08/12/21 15:47 Urine Total Protein 19 mg/dL (5-11.8) H 08/12/21 15:47 Medications & Allergies - Medications Allergies/Adverse Reactions: Allergies No Known Allergies Allergy (Verified 08/11/21 18:17) Home Medications: Home Medications Medication Instructions Recorded Confirmed Last Taken Type Metformin HCl 500 mg PO BID 03/26/13 08/12/21 08/11/21 History Cholecalciferol (Vitamin D3) 3,000 unit PO DAILY 01/13/20 08/12/21 08/11/21 History [Vitamin D3 3,000 unit] Doxazosin [Cardura] 4 mg PO BID 01/13/20 08/12/21 08/11/21 History Ferrous Sulfate [Feosol 325 MG tab] 325 mg PO QDAY 01/13/20 08/12/21 08/11/21 History Furosemide [Lasix TAB] 40 mg PO QDAY 01/13/20 08/12/21 08/11/21 History Multivit-Min36/Iron/Folic Acid 1 each PO DAILY 01/13/20 08/12/21 08/10/21 History [Geritol Complete Tablet] Simvastatin 10 mg PO QHS 01/13/20 08/12/21 08/10/21 History Vitamin E Mixed [Vitamin E] 1,000 unit PO DAILY 01/13/20 08/12/21 08/11/21 History allopurinoL [Zyloprim] 300 mg PO QDAY 01/13/20 08/12/21 08/11/21 History Gabapentin 300 mg PO BID 08/12/21 08/12/21 08/11/21 History Labetalol HCl [Labetalol 300mg TAB] 300 mg PO BID 08/12/21 08/12/21 08/11/21 History Losartan-Hctz 100-25 mg Tab 1 tab PO QDAY 08/12/21 08/12/21 08/11/21 History Montelukast [Singulair] 10 mg PO QDAY 08/12/21 08/12/21 08/11/21 History glipiZIDE 10 mg QAM 08/12/21 08/12/21 08/11/21 History Clobetasol 0.05% [Temovate] 1 applic TP BID 30 Days #2 tube 08/15/21 Unknown Rx Prednisone [predniSONE 10 mg 10 mg PO .TAPER 6 Days #1 pack 08/15/21 Unknown Rx (6-Day Pack, 21 Tabs)] diphenhydrAMINE [Benadryl CAP] 25 mg PO Q6H PRN 10 Days #40 08/15/21 Unknown Rx capsule
== END 2021-08-15 10:54 | disposition home health service (06) | DRG 871 ==
LOC: ED 18:14 → 3A 23:37
PROVIDERS: ADMIT Internal Medicine Geriatric Medicine; ATTEND Student in an Organized Health Care Education/Training Program
DX: A41.9 Sepsis, unspecified organism (principal); R65.21 Severe sepsis with septic shock; E87.1 Hypo-osmolality and hyponatremia; N17.9 Acute kidney failure, unspecified; R21 Rash and other nonspecific skin eruption; R91.8 Other nonspecific abnormal finding of lung field; D72.828 Other elevated white blood cell count; Z20.822 Contact with and (suspected) exposure to COVID-19; I12.9 Hypertensive chronic kidney disease with stage 1 through stage 4 chronic kidney disease, or unspecified chronic kidney disease; E11.22 Type 2 diabetes mellitus with diabetic chronic kidney disease; M10.9 Gout, unspecified; N18.30 Chronic kidney disease, stage 3 unspecified; M19.90 Unspecified osteoarthritis, unspecified site; Z90.49 Acquired absence of other specified parts of digestive tract; Z96.653 Presence of artificial knee joint, bilateral; I48.91 Unspecified atrial fibrillation; N14.1 Nephropathy induced by other drugs, medicaments and biological substances; T39.395A Adverse effect of other nonsteroidal anti-inflammatory drugs [NSAID], initial encounter; Y92.89 Other specified places as the place of occurrence of the external cause; Z79.84 Long term (current) use of oral hypoglycemic drugs
CPT/HCPCS: 36415; 71045; 76770; 80048; 80053; 80074; 80202; 81001; 82140; 82570; 82962; 84156; 84300; 84439; 84443; 84484; 85007; 85025; 85027; 86021; 86038; 86160; 86334; 86689; 87040; 93005; 94640; G0378; Q0162; Q9967; J0692; J1200; J1644; J1815; J2270; J2930; J3370; J7030; J7040; U0003

== ENCOUNTER 2021-10-21 10:30 | Emergency (ER) | payer MEDICARE ==
[2021-10-21] MEDS ORDERED: HYDROcodone/ACETAMINOPHEN 5-325 MG TAB PO ONE (12:22)
--- NOTE | 2021-10-21 14:28 | Emergency Department Report ---
ED Extremity Problem HPI - General Chief complaint: Extremity Problem,Nontraumatic Stated complaint: LOW EXTREMITY SWELLING/PAIN Time Seen by Provider: 10/21/21 11:55 Source: patient Mode of arrival: Stretcher Limitations: No Limitations - History of Present Illness Initial comments: 71 YO Female with Paroxysmal Atrial Fib on therapeutic anticoagulation with Eliquis, Obesity Hypoventilation Syndrome, HTN, DM, HLD, Metabolic Syndrome, Gout, OA, Vascular Dementia, Cerebral Atherosclerosis presents to ED with complaints of bilateral acute on chronic leg pain. Patient complains of chronic leg edema that is unchanged since discharge from the hospital on the . She has history of sciatica and neuropathy and complains of tingling sensation down both her legs. She also has chronic edema, venous stasis dermatitis, history of blisters and skin peeling. Patient denies fever or worsening shortness of breath. Patient is taking Tylenol only for pain in addition to her gabapentin. No urinary incontinence or weakness reported. Severity scale (0 -10): 6 - Related Data Home Medications Medication Instructions Recorded Confirmed Last Taken Metformin HCl 500 mg PO BID 03/26/13 10/11/21 08/11/21 Cholecalciferol (Vitamin D3) 3,000 unit PO DAILY 01/13/20 10/11/21 08/11/21 [Vitamin D3 3,000 unit] Doxazosin [Cardura] 4 mg PO BID 01/13/20 10/11/21 08/11/21 Ferrous Sulfate [Feosol 325 MG tab] 325 mg PO QDAY 01/13/20 10/11/21 08/11/21 Multivit-Min36/Iron/Folic Acid 1 each PO DAILY 01/13/20 10/11/21 08/10/21 [Geritol Complete Tablet] allopurinoL [Zyloprim] 300 mg PO QDAY 01/13/20 10/11/21 08/11/21 Gabapentin 300 mg PO BID 08/12/21 10/11/21 08/11/21 Montelukast [Singulair] 10 mg PO QDAY 08/12/21 10/11/21 08/11/21 Methotrexate [Xatmep] 2.5 mg PO 1XW 10/04/21 10/11/21 Unknown Previous Rx's Medication Instructions Recorded Last Taken Type Clobetasol 0.05% [Temovate] 1 applic TP BID 30 Days #2 tube 08/15/21 Unknown Rx Apixaban [Eliquis] 5 mg PO BID #60 tab 10/07/21 Unknown Rx Folic Acid/Vit B Comp W-C [Renal 1 cap PO QDAY #30 capsule 10/07/21 Unknown Rx Caps] Pravastatin [Pravachol] 20 mg PO QHS #30 tablet 10/07/21 Unknown Rx dilTIAZem [Cardizem] 60 mg PO Q8HR #90 tablet 10/07/21 Unknown Rx labetaloL [Labetalol 200mg TAB] 200 mg PO BID #60 tablet 10/07/21 Unknown Rx Furosemide [Lasix TAB] 20 mg PO 0600,1800 #60 tablet 10/13/21 Unknown Rx HYDROcodone/APAP 5-325 [[place] 1 each PO Q6HR PRN #15 tablet 10/21/21 Unknown Rx 5/325] Allergies Allergy/AdvReac Type Severity Reaction Status Date / Time No Known Allergies Allergy Verified 10/04/21 19:47 ED Review of Systems ROS: Stated complaint: LOW EXTREMITY SWELLING/PAIN Other details as noted in HPI Comment: All other systems reviewed and negative ED Past Medical Hx - Past Medical History Hx Hypertension: Yes Hx Heart Attack/AMI: No Hx Congestive Heart Failure: Yes Hx Diabetes: Yes Hx Liver Disease: No Hx Renal Disease: Yes Hx Arthritis: Yes Hx Asthma: Yes Hx HIV: No Additional medical history: autoimmune disorder - Surgical History Hx Pacemaker: No Hx Internal Defibrillator: No Hx Cholecystectomy: Yes Hx Breast Surgery: Yes (3 RIGHT BX; 1 LEFT BX) Additional Surgical History: hysterectomy, thyriodectomy, bilateral TKR - Social History Smoking Status: Never Smoker - Medications Home Medications: Home Medications Medication Instructions Recorded Confirmed Last Taken Type Metformin HCl 500 mg PO BID 03/26/13 10/11/21 08/11/21 History Cholecalciferol (Vitamin D3) 3,000 unit PO DAILY 01/13/20 10/11/21 08/11/21 History [Vitamin D3 3,000 unit] Doxazosin [Cardura] 4 mg PO BID 01/13/20 10/11/21 08/11/21 History Ferrous Sulfate [Feosol 325 MG tab] 325 mg PO QDAY 01/13/20 10/11/21 08/11/21 History Multivit-Min36/Iron/Folic Acid 1 each PO DAILY 01/13/20 10/11/21 08/10/21 History [Geritol Complete Tablet] allopurinoL [Zyloprim] 300 mg PO QDAY 01/13/20 10/11/21 08/11/21 History Gabapentin 300 mg PO BID 08/12/21 10/11/21 08/11/21 History Montelukast [Singulair] 10 mg PO QDAY 08/12/21 10/11/21 08/11/21 History Clobetasol 0.05% [Temovate] 1 applic TP BID 30 Days #2 tube 08/15/21 10/11/21 Unknown Rx Methotrexate [Xatmep] 2.5 mg PO 1XW 10/04/21 10/11/21 Unknown History Apixaban [Eliquis] 5 mg PO BID #60 tab 10/07/21 10/11/21 Unknown Rx Folic Acid/Vit B Comp W-C [Renal 1 cap PO QDAY #30 capsule 10/07/21 10/11/21 Unknown Rx Caps] Pravastatin [Pravachol] 20 mg PO QHS #30 tablet 10/07/21 10/11/21 Unknown Rx dilTIAZem [Cardizem] 60 mg PO Q8HR #90 tablet 10/07/21 10/11/21 Unknown Rx labetaloL [Labetalol 200mg TAB] 200 mg PO BID #60 tablet 10/07/21 10/11/21 U nknown Rx Furosemide [Lasix TAB] 20 mg PO 0600,1800 #60 tablet 10/13/21 Unknown Rx HYDROcodone/APAP 5-325 [[place] 1 each PO Q6HR PRN #15 tablet 10/21/21 Unknown Rx 5/325] ED Physical Exam - General Limitations: No Limitations - Other Other exam information: General: No acute distress Head: Atraumatic Eyes: normal appearance ENT: Moist mucous membranes Neck: Normal appearance, no midline tenderness Chest: Clear to auscultation bilaterally CV: Regular rate and rhythm Abdomen: Soft, normal bowel sounds, nontender, nondistended, no rebound or guarding Back: Normal inspection Extremity: Bilateral lower extremity 3+ edema with venous stasis dermatitis and peeling of skin. This is chronic as per patient. Sensation intact. No isolated calf tenderness or leg asymmetry. Neuro: Alert O x 3, no facial asymmetry, speech clear, no gross motor sensory deficit Psych: Appropriate behavior Skin: No rash ED Course Vital Signs 10/21/21 10/21/21 10/21/21 11:01 11:15 11:31 Temperature Pulse Rate 96 H 89 86 Respiratory 14 17 9 L Rate Blood Pressure 160/63 140/62 Blood Pressure [Left] O2 Sat by Pulse 98 98 Oximetry 10/21/21 10/21/21 10/21/21 11:45 12:01 12:09 Temperature 98.2 F Pulse Rate 89 87 Respiratory 19 17 Rate Blood Pressure 138/66 159/65 Blood Pressure 159/65 [Left] O2 Sat by Pulse 99 98 Oximetry ED Medical Decision Making - Medical Decision Making 71-year-old female with a past medical history of sciatica, neuropathy, osteoarthritis, and chronic lower extremity pain presents to the hospital with complaints of exacerbation of pain. She does not endorse infectious symptoms. She has no signs of cellulitis. Patient has multiple leg findings that are chronic including dark discoloration and peeling of skin. Patient provided [place] for pain with improvement. Patient is low risk for DVT since she is currently taking Eliquis for paroxysmal A. fib. she will be discharged home with pain medication outpatient follow-up Critical Care Time: No Critical care attestation.: If time is entered above; I have spent that time in minutes in the direct care of this critically ill patient, excluding procedure time. ED Disposition Clinical Impression: Bilateral leg pain, Chronic edema, Peripheral neuropathy, Sciatica Disposition: 01 HOME / SELF CARE / HOMELESS Is pt being admited?: No Does the pt Need Aspirin: No Condition: Stable Instructions: Edema, Sciatica, [id number] Additional Instructions: Take the medication as prescribed. Continue your Lasix as prescribed. Follow- up with your doctor or doctor/clinic provided. Return if symptoms worsen as indicated by your discharge instructions. Prescriptions: HYDROcodone/APAP 5-325 [[place] 5/325] 1 each PO Q6HR PRN #15 tablet PRN Reason: Pain Referrals: DAJUAN BONILLA MD [Primary Care Provider] - 3-5 Days
[2021-10-21 14:36] VITALS: BP 115/53
== END 2021-10-21 15:34 | disposition home or self-care (01) ==
LOC: ED 10:30
DX: M79.605 Pain in left leg (principal); M79.604 Pain in right leg; R60.0 Localized edema; G62.9 Polyneuropathy, unspecified; M54.30 Sciatica, unspecified side; I11.0 Hypertensive heart disease with heart failure; I50.9 Heart failure, unspecified; N28.9 Disorder of kidney and ureter, unspecified; M19.90 Unspecified osteoarthritis, unspecified site; J45.909 Unspecified asthma, uncomplicated; E11.9 Type 2 diabetes mellitus without complications; Z79.899 Other long term (current) drug therapy
CPT/HCPCS: 99283

== ENCOUNTER 2021-12-24 07:30 | Outpatient (CLI) | payer MEDICARE ==
--- NOTE | 2022-01-03 10:36 | Ultrasound Report ---
ULTRASOUND BREAST RIGHT LIMITED, 12/24/2021 CLINICAL INFORMATION / INDICATION: 6 month f/u right breast. TECHNIQUE: Targeted ultrasound evaluation was performed of the area of interest. COMPARISON: Prior right breast ultrasound 06/21/2021 and prior mammogram 06/16/2021, 11/12/2020 FINDINGS: Sonographic evaluation of the right breast at 9:00, 11 cm from nipple, demonstrates post surgical sit e. There are a few cystic areas probably representing fat necrosis., However, there is a larger hypoe choic area containing internal vascularity measuring approximately 1.8 cm in length. The overall appe arance appears slightly changed. Findings could be secondary to evolving fat necrosis but confirmatio n with right breast mammogram is recommended. Please note that the recommendation from exam performed on 06/21/2021 was for follow-up right mammogra m and right breast ultrasound. Patient only received right breast ultrasound on 12/24/2021. A request was made for the patient to return for diagnostic imaging prior to interpretation, which has not occu rred at this time. IMPRESSION: In the excisional biopsy site in the right breast at 9:00, there is masslike entity conta ining a few cystic and complex areas. Complex areas appear slightly more prominent than on prior jarad st ultrasound. Findings could be related to evolving fat necrosis but confirmation with diagnostic ri ght mammogram is recommended. Follow up recommendation: Right diagnostic mammogram BI-RADS Category 0: INCOMPLETE. Needs additional imaging evaluation and/or prior mammograms for jessy risaddy. A normal or "negative" report should not preclude biopsy or follow-up of a clinically suspicious find ing. Signer Name: Sonya Daniels MD Signed: 01/03/2022 10:31 AM Workstation Name: [id number]
== END 2021-12-24 07:31 | disposition home or self-care (01) ==
LOC: US 07:30
PROVIDERS: ATTEND Surgery
DX: N60.81 Other benign mammary dysplasias of right breast (principal)

== ENCOUNTER 2022-01-10 11:01 | Outpatient (CLI) | payer MEDICARE ==
--- NOTE | 2022-01-10 12:10 | Mammography Report ---
DIGITAL DIAGNOSTIC MAMMOGRAM WITH CAD , 01/10/2022 CLINICAL INFORMATION / INDICATION: Diagnostic mammogram performed for further evaluation of increasin g right breast nodularity at site of previous benign excisional biopsy. TECHNIQUE: Digital right mammographic imaging was performed. Spot compression views were obtained. This examination was interpreted with the benefit of Computer-aided Detection analysis. COMPARISON: Right breast ultrasound, 12/24/2021 and 06/21/2021. Right diagnostic mammogram, 06/21/2021. Bilateral mammogram, 11/12/2020, 08/13/2020. Bilateral screening mammogram, 11/10/2020 FINDINGS: Breast Density: The breasts are heterogeneously dense, which may obscure small masses. Spot compression views confirm slightly increased nodularity along the anterior aspect of the excisio nal biopsy site. Surrounding areas of fat necrosis are noted. Biopsy clips are noted in the central right breast and upper outer quadrant. IMPRESSION: 1. Minimally increasing nodularity along the anterior aspect of the biopsy site. Recently performed r ight breast ultrasound demonstrated a 1.8 cm hypoechoic masslike area with internal vascularity. Find ings are favored to be related to evolving fat necrosis at the surgical site. Although these findings are low suspicion for malignancy, ultrasound-guided biopsy is recommended to confirm a benign proces s. Follow up recommendation: Biopsy BI-RADS Category 4: SUSPICIOUS FOR MALIGNANCY. (Low suspicion for malignancy) A "normal" or negative report should not discourage follow up or biopsy of a clinically significant f inding. A written summary of these findings will be mailed to the patient. The patient will be entered into a mammography reporting system which will generate a reminder letter for the patient's next appointmen t at the appropriate interval. According to the [employer], yearly mammograms are recommended starting at age 40 and continuing as long as a woman is in good health. Breast MRI is recommended for women with an roman roximately 20-25% or greater lifetime risk of breast cancer, including women with a strong family his tory of breast or ovarian cancer and women who have been treated for Hodgkin's disease. Signer Name: Rahel Anna MD Signed: 01/10/2022 12:06 PM Workstation Name: [id number]
== END 2022-01-10 11:02 | disposition home or self-care (01) ==
LOC: MAMMO 11:01
PROVIDERS: ATTEND Surgery
DX: N60.81 Other benign mammary dysplasias of right breast (principal); N60.11 Diffuse cystic mastopathy of right breast

== ENCOUNTER 2022-01-26 08:42 | Outpatient (CLI) | payer MEDICARE | END 2022-01-26 08:43 | disposition home or self-care (01) | LOC: LABHHL 08:42 | PROVIDERS: ATTEND Surgery | DX: N63.11 Unspecified lump in the right breast, upper outer quadrant (principal) | CPT/HCPCS: 88305 ==